=== PATIENT | female | born 1970 | race Caucasian/White ===

== ENCOUNTER 2020-01-29 18:42 | Outpatient (CLI) | payer OTHER, SELFPAY ==
--- NOTE | ~2020-01-29 | XR_ITS ---
EXAMINATION: XR knee LT 3V EXAM DATE: 01/29/2020 19:11 INDICATION: Left knee pain. Pops in and out of place. TECHNIQUE: Three projections of the left knee. There is no prior study for comparison. FINDINGS: Moderate-sized joint effusion. There is severe left patellar lateral subluxation, with pos sible discontinuity of the medial patellar retinaculum. There is moderate medial tibiofemoral and pat ellofemoral compartment primary osteoarthritis. There are no acute fractures or dislocations identifi ed. There is no subcutaneous gas. The soft tissue is unremarkable. There are no radiopaque foreig n bodies. IMPRESSION: 1. Severe left patellar lateral subluxation with possible medial retinacular disruption. 2. Moderate osteoarthritis. 3. Moderate joint effusion. Reviewed, dictated and finalized at location G. IMPRESSION: 1. Severe left patellar lateral subluxation with possible medial retinacular d isruption. 2. Moderate osteoarthritis. 3. Moderate joint effusion.
== END 2020-01-29 18:43 | disposition home or self-care (01) ==
PROVIDERS: PCP Physician Assistant; Visit Provider Physician Assistant
DX: M25.562 Pain in left knee (principal); S83.012A Lateral subluxation of left patella, initial encounter; M17.12 Unilateral primary osteoarthritis, left knee; M25.462 Effusion, left knee
CPT/HCPCS: 73562

== ENCOUNTER 2020-05-16 14:09 | Outpatient (CLI) | payer OTHER, SELFPAY ==
--- NOTE | ~2020-05-16 | XR_ITS ---
XR knee RT min 4V DATE: 05/16/2020 14:39 INDICATION: Right knee pain. No injury. TECHNIQUE: 4 views COMPARISON: None FINDINGS: There is tricompartment osteoarthritis, most severe at the medial compartment, with severe loss of joint space at this compartment. There is periarticular spurring at all 3 compartments. There is mild suprapatellar joint effusion. No fracture or dislocation, periosteal reaction or bone destruction is detected. No radiopaque intra- articular loose body is noted IMPRESSION: Tricompartment osteoarthritis, most severe at the medial compartment Mild knee joint effusion Reviewed, dictated and finalized at location A. MAID IMPRESSION: Tricompartment osteoarthritis, most severe at the medial compartmen t Mild knee joint effusion
== END 2020-05-16 14:10 | disposition home or self-care (01) ==
PROVIDERS: PCP Physician Assistant; Visit Provider Orthopaedic Surgery
DX: M17.11 Unilateral primary osteoarthritis, right knee (principal); M25.461 Effusion, right knee
CPT/HCPCS: 73564

== ENCOUNTER 2021-11-02 10:21 | Outpatient (CLI) | payer OTHER, SELFPAY | END 2021-11-02 10:22 | disposition home or self-care (01) | LOC: ANHAUDIO 10:23 | PROVIDERS: PCP Physician Assistant; Visit Provider Otolaryngology | DX: H90.3 Sensorineural hearing loss, bilateral (principal) | CPT/HCPCS: 92557; 92567 ==

== ENCOUNTER 2023-01-14 17:42 | Observation (INO) | payer OTHER, SELFPAY ==
[2023-01-14] VITALS (16 sets, daily range): BP systolic 160–206; BP diastolic 87–170; PULSE 64–87; RESP 16–33; TEMP 35.9; O2SAT 86–100
--- NOTE | ~2023-01-14 | XR_ITS ---
Portable chest x-ray Comparison: None Clinical History: Weakness Findings: Lungs are clear, without focal consolidation or pleural effusion. Cardiomediastinal silho uette is unremarkable. Bones and soft tissues are unremarkable. Impression: Normal chest. Reviewed, dictated and finalized at location M. Impression: Normal chest.
--- NOTE | ~2023-01-14 | CT_ITS ---
Non-contrast Head CT History: Headache Technique: Axial non-contrast imaging of the brain was performed. Dose reduction technique was used on this scan by utilizing automated exposure control and iterative reconstruction technique. The dose -length product (DLP) was 681.00 mGy-cm. Findings: There is no evidence of intracranial hemorrhage, mass lesion, or acute infarct. Brain par enchyma appears normal. The ventricles and subarachnoid spaces are normal in size. The calvarium ap pears normal. The visualized paranasal sinuses and mastoid air cells are clear. Impression: No significant abnormality seen. Reviewed, dictated and finalized at location . Impression: No significant abnormality seen.
--- NOTE | 2023-01-14 23:00 | ECG_ITS ---
Measurements Intervals [place] Rate: 60 P: 41 NE: 162 QRS: 80 QRSD: 88 T: 16 QT: 377 QTc: 378 Interpretive Statements SINUS RHYTHM WITHIN NORMAL LIMITS NO PREVIOUS ECG AVAILABLE FOR COMPARISON Electronically Signed On 01-15-2023 12:03:45 CDT by Shaun Reyes M.D.
[2023-01-14] MEDS: hydrALAZINE HCL 20 MG/ML VIAL 10 MG IV PUSH (23:21)
[2023-01-14] MEDS: PROCHLORPERAZINE EDISYLATE 10 MG/2 ML VIAL IV PUSH (23:21)
[2023-01-14 23:25] LABS: Basophils Percent Auto 0.2 % (0.2-1.2); Eosinophils Absolute Auto 0.1 K/mm3 (0-0.3); Eosinophils Percent Auto 0.6 % (0-4.4); Hematocrit 46.5 % (37.0-47.0); Hemoglobin 15.2 g/dL (12.0-15.0); Immature Granulocyte Absolute 0.02 K/mm3 (0.00-0.031); Immature Granulocyte Percent A 0.2 % (0-0.5); Lymphocytes Absolute Auto 2.89 K/mm3 (0.9-3.2); Lymphocytes Percent Auto 30.6 % (18.3-44.2); Mean Corpuscular HGB Conc 32.7 g/dl (32-36); Mean Corpuscular Hemoglobin 28.7 pg (26-34); Mean Corpuscular Volume 87.7 fl (80-100); Mean Platelet Volume 10.4 fl (7.4-10.4); Monocytes Absolute Auto 0.6 K/mm3 (0.1-0.6); Monocytes Percent Auto 6.3 % (2.6-8.5); Neutrophils Absolute Auto 5.9 K/mm3 (1.3-6.7); Neutrophils Percent Auto 62.1 % (45.5-73.1); Platelet Count Result 268 k/mm3 (150-375); White Blood Count 9.4 K/mm3 (4.5-10.0)
[2023-01-14 23:41] LABS: Alanine Aminotransferase 35 U/L (6-35); Albumin Level 4.5 g/dL (3.5-5.1); Alkaline Phosphatase 112 U/L (38-126); Anion Gap 9 mmol/L (8-16); Aspartate Amino Transferase 51 U/L (14-36); Bilirubin,Total 1.1 mg/dL (0.2-1.3); Blood Urea Nitrogen 12 mg/dL (7-17); Calcium 8.9 mg/dL (8.4-10.2); Carbon Dioxide 24 mmol/L (22-30); Chloride 104 mmol/L (98-107); Estimated CRCL calculation 99 ml/min; Estimated Glomerular Filt Rate > 60; Glucose 88 mg/dL (65-110); Magnesium 1.9 mg/dL (1.6-2.3); Potassium 4.8 mmol/L (3.4-5.0); Sodium 137 mmol/L (137-145)
[2023-01-14 23:46] LABS: Appearance Urine Cloudy (Clear); Bacteria Urine 1+ /hpf; Bilirubin Urine Negative (Negative); Blood Urine Negative (Negative); Color Urine Yellow (Yellow); Glucose Urine UA Negative (Negative); Ketones Urine 1+ mg/dL (Negative); Leukocyte Esterase Ur 1+ LEU/UL (Negative); Nitrate Urine Negative (Negative); Non Pathogenic Casts 0-2; Protein Urine Negative (Negative); RBC Urine 0-2 /hpf (0-2); Specific Grav Ur 1.021 (1.001-1.035); Squamous Epithelial Cell Urine Moderate /hpf (Few)
[2023-01-14 23:50] LABS: Add Urine Microscopic? YES
[2023-01-14 23:55] LABS: Troponin I < 0.012 ng/mL (0.000-0.034)
[2023-01-15] VITALS (45 sets, daily range): BP systolic 116–181; BP diastolic 55–97; PULSE 60–85; RESP 14–24; TEMP 35.7–36.7; O2SAT 95–100; BMI 44.9
[2023-01-15] LABS: Influenza A QL RT-PCR Negative (Negative); Influenza B QL RT-PCR Negative (Negative); SARS-CoV-2 RNA PCR Negative (Negative)
[2023-01-15] MEDS: ONDANSETRON INJ 4 MG/2 ML VIAL IV PUSH (01:13)
--- NOTE | 2023-01-15 01:19 | ED.GENADULT ---
HPI - General Adult General Chief complaint: Dizziness Stated complaint: visual problems, N&V, sweating, dizziness Time Seen by Provider: 01/14/23 22:46 History of Present Illness HPI narrative: Patient 53-year-old female who presents to emergency department with chief complaint of hypertension and headache dizziness and nausea. Patient reports she has history of rheumatoid arthritis and gets infusions patient reports that she has been having headache starts in the occipital region of her head that comes around her patient reports symptoms are improved by anything reports that she has had nausea but has had no vomiting. Patient denies focal neurological deficit denies chest pain. Related Data Home Medications Medication Instructions Recorded Confirmed naproxen 500 mg tablet 04/24/19 Allergies Allergy/AdvReac Type Severity Reaction Status Date / Time diphenhydramine AdvReac Anxiety Verified 01/14/23 22:25 [From [place]] Review of Systems Review of Systems: A 10 system review of systems was completed on the patient and is negative except for what is stated in the HPI. Nursing and ancillary documentation was reviewed. [facility] Past Medical History Medical History Postmenopausal Rheumatoid arthritis Exam Narrative: GENERAL: Well-appearing, well-nourished, and in no acute distress. HEAD: Normocephalic, atraumatic. EYES: PERRLA and EOMI. ENT: Nares clear, no rhinorrhea or epistaxis. Mucous membranes moist. NECK: Supple. CHEST: Clear to auscultation. No respiratory distress. HEART: Regular rate and rhythm. No murmur heard. Normal peripheral pulses. ABDOMEN: Soft, nontender, nondistended, normal active bowel sounds. EXTREMITIES: Normal range of motion. No edema. SKIN: Warm, dry, no rash. NEURO: No focal deficits. Alert and oriented x3. PSYCH: Normal mood and affect. Course Vital Signs Vital signs: Vital Signs Temperature 35.9 C L 01/14/23 18:11 Pulse Rate 76 01/14/23 18:11 Respiratory Rate 18 01/14/23 18:11 Blood Pressure 160/90 H 01/14/23 18:11 Pulse Oximetry 97 01/14/23 18:11 Oxygen Delivery Room Air 01/14/23 18:11 Temperature 36.7 C 01/15/23 00:33 Pulse Rate 69 01/15/23 00:46 Respiratory Rate 18 01/15/23 00:46 Blood Pressure 181/87 H 01/15/23 00:33 Pulse Oximetry 99 01/15/23 00:46 Oxygen Delivery Room Air 01/14/23 22:18 Medical Decision Making Vital Signs Vital Signs: Vital Signs Temperature 35.9 C L 01/14/23 18:11 Pulse Rate 76 01/14/23 18:11 Respiratory Rate 18 01/14/23 18:11 Blood Pressure 160/90 H 01/14/23 18:11 Pulse Oximetry 97 01/14/23 18:11 Oxygen Delivery Room Air 01/14/23 18:11 Temperature 36.7 C 01/15/23 00:33 Pulse Rate 69 01/15/23 00:46 Respiratory Rate 18 01/15/23 00:46 Blood Pressure 181/87 H 01/15/23 00:33 Pulse Oximetry 99 01/15/23 00:46 Oxygen Delivery Room Air 01/14/23 22:18 Lab Data 01/14/23 23:18 01/14/23 23:18 Labs: Lab Results 01/14/23 01/14/23 Range/Units 23:18 23:38 WBC 9.4 (4.5-10.0) K/mm3 RBC 5.30 (4.2-5.4) M/mm3 Hgb 15.2 H (12.0-15.0) g/dL Hct 46.5 (37.0-47.0) % MCV 87.7 (80-100) fl MCH 28.7 (26-34) pg MCHC 32.7 (32-36) g/dl RDW 13.0 (11.5-14.5) % Plt Count 268 (150-375) k/mm3 MPV 10.4 (7.4-10.4) fl Immature Gran % (Auto) 0.2 (0-0.5) % Neut % (Auto) 62.1 (45.5-73.1) % Lymph % (Auto) 30.6 (18.3-44.2) % Castro % (Auto) 6.3 (2.6-8.5) % Eos % (Auto) 0.6 (0-4.4) % Baso % (Auto) 0.2 (0.2-1.2) % Lymph # (Auto) 2.89 (0.9-3.2) K/mm3 Castro # (Auto) 0.6 (0.1-0.6) K/mm3 Eos # (Auto) 0.1 (0-0.3) K/mm3 Baso # (Auto) 0.0 (0.0-0.1) K/mm3 Abs Immat Gran (auto) 0.02 (0.00-0.031) K/mm3 Absolute Neuts (auto) 5.9 (1.3-6.7) K/mm3 Absolute Nucleated RBC 0.0 (0.0-0.012) K/mm3 Nucleat
[2023-01-15 02:51] LABS: Troponin I < 0.012 ng/mL (0.000-0.034)
--- NOTE | 2023-01-15 07:42 | PC.NURSE ---
Breakfast ordered for pt
--- NOTE | 2023-01-15 11:18 | ADMGEN ---
This patient, Jyothi Rosado, was admitted to [facility] Surg Room 310-01. Patient/family oriented to hospital policies and general routines including ID bracelet, bed and alarms, visiting hours, pain management, procedures, bathroom and other care routines, personal items, smoking policy, room service/diet, and visiting hours. Information on how to activate the Rapid Response Team has been discussed. Patient/Family are encouraged to report perceived risks to care and to ask questions if they do not understand what they are told or what they should do.
--- NOTE | 2023-01-15 14:56 | PM.IMHP ---
H&P: HPI History of Present Illness Date/Time: 01/15/23 14:56 <Minoo Meadows APRN - Last Filed: 01/15/23 16:47> Chief Complaint: Dizziness, VALLECILLO <Minoo Meadows APRN - Last Filed: 01/15/23 16:47> Narrative: 53-year-old female presents here with headache, dizziness, and nausea. Patient reports VALLECILLO has been present for the past 2-3 days. Initially superior and parietal, now occipital with radiation to neck and ears bilaterally. No medications taken at home for pain. Headache is accompanied by dizziness. Per patient, the dizziness is elicited with position changes and with specific eye movements. Relief with remaining sedentary, slow position changes. +Nausea w/o vomiting. Patient denies weakness, numbness, dysarthria, aphasia, or dysphagia. History of rheumatoid arthritis. Currently being treated with Rituxan infusions, celecoxib 100 mg PO, and leflunomide 10 mg PO. Patient next scheduled for infusion today. <Minoo Meadows APRN - Last Filed: 01/15/23 16:47> Review of Systems Review of Systems: All systems reviewed & are unremarkable except as noted in HPI and below <Minoo Meadows APRN - Last Filed: 01/15/23 16:47> ON LICENSE OF [facility] Past Medical History Medical History: Medical History (Updated 01/15/23 @ 16:12 by Minoo Meadows APRN) Postmenopausal Rheumatoid arthritis <Minoo Meadows APRN - Last Filed: 01/15/23 16:47> Surgical History Surgical History: Surgical History (Updated 01/15/23 @ 16:27 by Minoo Meadows APRN) No significant past surgical history <Minoo Meadows APRN - Last Filed: 01/15/23 16:47> Family History Family History: Family History (Updated 01/15/23 @ 16:43 by Minoo Meadows APRN) Mother Heart disease Lung cancer Sibling Hypertension <Minoo Meadows APRN - Last Filed: 01/15/23 16:47> Social History Social History: Social History Smoking packs per day: 0.5 Smoking cigarettes per day: 10.0 Years smoked: 37 Smoking pack-years: 18.50 Smoking status: Current every day smoker Tobacco type: cigarettes Alcohol intake: current Drinks per week: 1 Substance use: never Lack of Transportation: No Lack of Food: Never True Current Housing: I Have Housing Concerned About Future Housing: No Difficulty Paying Gas/Electric Bills: No Difficulty Paying for Meds: No Currently Unemployed: No Education: Decline to Answer Difficulty w/ Childcare or Family Care: No Spiritual care concerns: No <Minoo Meadows APRN - Last Filed: 01/15/23 16:47> Meds Home Medications and Allergies Home medications: Home Medications Medication Instructions Recorded Confirmed Type naproxen 500 mg tablet 04/24/19 History naproxen 500 mg tablet 500 mg PO BID 7 days #14 tabs 04/24/19 Rx calcium carbonate 600 mg-vitamin 800 tablet PO DAILY 01/15/23 01/15/23 History D3 10 mcg (400 unit) tablet (Calcium 600 + D(3)) celecoxib 100 mg capsule 100 mg PO DAILY 01/15/23 01/15/23 History leflunomide 10 mg tablet 10 mg PO DAILY 01/15/23 01/15/23 History <Minoo Meadows, MEDICAL LIBRARY ASSISTANT - Last Filed: 01/15/23 16:47> Allergies/Adverse reactions: Allergies Allergy/AdvReac Type Severity Reaction Status Date / Time diphenhydramine AdvReac Anxiety Verified 01/14/23 22:25 [From Benadryl] <Minoo Meadows, MEDICAL LIBRARY ASSISTANT - Last Filed: 01/15/23 16:47> Vital Signs Vital Signs - 24 hr 01/14/23 18:11 01/14/23 22:18 01/14/23 22:12 Temperature 96.7 F L Pulse Rate 76 66 68 Respiratory Rate 18 16 16 Blood Pressure 160/90 H 195/112 H Pulse Oximetry 97 100 100 Oxygen Delivery Room Air Room Air 01/14/23 22:13 01/14/23 22:15 01/14/23 22:17 Temperature Pulse Rate 76 65 76 Respiratory Rate 22 H 19 22 H Blood Pressure 189/107 H 195/112 H Pulse Oximetry 99 100 100 Oxygen Delivery 01/14/23 22:30 01/14/23 22:31 01/15/23 00:33 Temperature 98.1 F
[2023-01-15] MEDS: MECLIZINE HCL 25 MG TABLET PO (18:37)
[2023-01-15] MEDS: ENOXAPARIN 30 MG/0.3 ML SYRINGE SUB-Q (21:01)
[2023-01-16] VITALS (7 sets, daily range): BP systolic 123–132; BP diastolic 60–74; PULSE 49–67; RESP 16–21; TEMP 35.7–36; O2SAT 98–99
--- NOTE | 2023-01-16 06:00 | ECHO_ITS ---
Patient Info Name: Jyothi Rosado Age: 53 years : 1970 Gender: Female Ht: 60 in Wt: 229 lbs BSA: 2.16 m2 HR: 59 bpm BP: 150 / 71 mmHg Heart Rhythm: Sinus Rhythm Technical Quality: Fair Exam Date: 01/16/2023 9:12 AM Exam Location: [facility] Card Pulmonary Patient Status: Inpatient Admit Date: 01/15/2023 Staff Ordering Physician: Pablito Rivera MD Project Coordinator Rn: Kelly Alfred RDCS Attending Provider: Jessica Chávez MD Referring Physician: Nicole CHONG; Exam Type: CA echo doppler color flow Study Info Indications I10 - Essential (primary) hypertension Complete two-dimensional, color flow and Doppler transthoracic echocardiogram is performed. Summary 1. Complete two-dimensional, color flow and Doppler transthoracic echocardiogram is performed. 2. Left ventricular chamber dimension is normal. 3. Left ventricular systolic function is hyperdynamic, estimated at >70%. 4. There is mildly increased left ventricular wall thickness. 5. The left ventricular diastolic function is grade II diastolic dysfunction. 6. Left atrial chamber dimension is mildly enlarged. 7. There is mild tricuspid valve regurgitation. 8. There is mild pulmonic regurgitation. Left Ventricle Left ventricular chamber dimension is normal. Left ventricular systolic function is hyperdynamic, estimated at >70%. There is mildly increased left ventricular wall thickness. The left ventricular diastolic function is grade II diastolic dysfunction. Right Ventricle Right ventricular chamber dimension is normal. Right ventricular systolic function is normal. Left Atria Left atrial chamber dimension is mildly enlarged. Right Atria Right atrial chamber dimension is normal. Atrial Septum Intact interatrial septum visualized by color flow imaging. Aortic Valve The aortic valve is trileaflet. There is mild aortic valve sclerosis. There is no aortic valve stenosis. There is trace aortic valve regurgitation. Pulmonic Valve The pulmonic valve is normal. There is no pulmonic valve stenosis. There is mild pulmonic regurgitation. Mitral Valve The mitral valve has normal leaflets. There is no mitral valve stenosis. There is trace mitral valve regurgitation. Tricuspid Valve The tricuspid valve leaflets are normal. There is no significant tricuspid valve stenosis. There is mild tricuspid valve regurgitation. No pulmonary hypertension, estimated pulmonary arterial systolic pressure is 20 mmHg. Pericardium/Pleural The pericardium appears normal. There is no pericardial effusion. Inferior Vena Cava Normal inferior vena cava with >50% collapse upon inspiration consistent with normal right atrial pressure, 10 mmHg. Aorta The aortic root size at the sinus of Valsalva is normal. Left Ventricular Outflow Tract Name Value Normal LVOT 2D LVOT Diameter 2.0 cm LVOT Doppler LVOT Peak Gradient 5 mmHg LVOT Mean Gradient 2 mmHg LVOT VTI 21 cm LVOT VTI/AV VTI Ratio 0.8 LVOT Stroke Volume 64 ml LVOT CO 3.8 l/min LVOT
--- NOTE | 2023-01-16 08:23 | PM.IMPN ---
Progress Note: A&P Assessment and Plan (1) Headache: Code(s): R51.9 - Headache, unspecified Status: Acute Assessment and Plan: Tylenol 650 mg PO ordered PRN for pain - patient has not required or requested pain medication. VALLECILLO improving. (2) Dizziness: Code(s): R42 - Dizziness and giddiness Status: Acute Assessment and Plan: Meclizine 25 mg PO BID PRN ordered - one dose given on 01/15 PM. Patient reported improvement of symptoms, recurred but milder in nature. Will redose this AM. Encourage oral rehydration. PT/OT ordered for Emmie Maneuver - reasess for improvement post-intervention. (3) UTI (urinary tract infection): Code(s): N39.0 - Urinary tract infection, site not specified Status: Acute Assessment and Plan: Urine culture pending. Continue atb, Ceftriaxone 1 G Q24 hours. Upon discharge, exchange to PO. Cefdinir 300 mg PO BID x5 days. (4) Hypertension: Code(s): I10 - Essential (primary) hypertension Status: Acute Assessment and Plan: No previous history. Hydralazine 10 mg IV ordered PRN. Referral to PCP, Violet Suarez, for further management. BP 123/74 @0600 (01/16) CA Echo ordered. (5) Rheumatoid arthritis: Code(s): M06.9 - Rheumatoid arthritis, unspecified Status: Acute Assessment and Plan: Continue celecoxib 100 mg PO once daily. Continue leflunomide 10 mg PO once daily. No synovitis on exam. Plan DVT prophylaxis ordered - Lovenox 30 mg SQ Q12 hours. Heart Healthy Diet. Patient is full code. Time Spent With Patient Time with patient: less than 15 minutes Subjective Date/time seen: 01/16/23 08:23 Interval history: 53 y/o F with history of rheumatoid arthritis presented here with VALLECILLO, dizziness, nausea w/o vomiting. Found to have UTI and elevated blood pressures. Patient reports overall improvement of VALLECILLO and dizziness. Able to tolerate fluids/food with complete resolution of nausea. Patient endorses mild dizziness with ambulation to restroom at 0600. Reports meclizine dose that was administered yesterday (PM) improved symptoms, but returned later but milder in nature. Patient also endorses improvement in suprapubic discomfort, but change in urine output color. Reports it was orange in appearance when she used the restroom this AM. Review of Systems Review of Systems: All systems reviewed & are unremarkable except as noted in HPI and below Exam Const: General: comfortable and no acute distress Eyes: General: appearance normal, both eyes and all related structures Sclera: sclerae normal Pupils: Equal, round and reactive pupils present EOM: EOMs intact bilaterally Resp: Effort & Inspection: normal respiratory effort Auscultation: clear to auscultation bilaterally Cardio: Rate: regular rate Rhythm: regular rhythm GI: GI Palp: Yes Soft to palpation Auscultation: normal bowel sounds Other: Non-tender. Skin: General skin exam: normal color and no rashes or lesions noted Other: <1 cm of ecchymosis just superior and lateral to umbilicus. Neuro: Speech: normal speech Motor exam (neuro): 5/5 motor strength present throughout Sensory Exam: normal sensation Extrem: General: normal to inspection Psych: Mental Status: mental status grossly normal Affect: normal affect Other: Feeling hopeful, overall improved. Objective Data Vital Signs Vital Signs: Vital Signs - 24 hr 01/15/23 08:30 01/15/23 08:31 01/15/23 08:40 Temperature Pulse Rate 68 71 62 Respiratory Rate 21 H 21 H 14 Blood Pressure 140/97 H 116/55 L Pulse Oximetry 98 98 99 Oxygen Delivery 01/15/23 08:45 01/15/23 08:50 01/15/23 09:00 Temperature Pulse Rate 66 64 66 Respiratory Rate 19 20 22 H Blood Pressure 129/78 139/66 Pulse Oximetry 98 98 100 Oxygen Delivery 01/15/23 09:01 01/15/23 09:16 01/15/23 09:20 Temperature Pulse Rate 66 68 71 Respir
[2023-01-16] MEDS: LEFLUNOMIDE 10 MG TABLET PO (09:49)
[2023-01-16] MEDS: ENOXAPARIN 30 MG/0.3 ML SYRINGE SUB-Q (09:50)
[2023-01-16] MEDS: CELECOXIB 100 MG CAPSULE PO (09:50)
[2023-01-16] MEDS: SODIUM CHLORIDE 0.9% IV 500 ML IV CONT (14:48)
--- NOTE | 2023-01-16 16:47 | PM.DS ---
DS: Admitting Diagnosis Discharge Date 01/16/23 Admitting Diagnosis Dizziness DS: Discharge Diagnosis Discharge Diagnosis (1) Headache: Code(s): R51.9 - Headache, unspecified Status: Acute (2) Dizziness: Code(s): R42 - Dizziness and giddiness Status: Acute (3) Rheumatoid arthritis: Code(s): M06.9 - Rheumatoid arthritis, unspecified Status: Acute (4) Elevated blood pressure reading: Code(s): R03.0 - Elevated blood-pressure reading, without diagnosis of hypertension Status: Acute (5) Diastolic dysfunction: Code(s): I51.89 - Other ill-defined heart diseases Status: Acute DS: Summary Hospital Course Reason for hospitalization: 53yo female with RA here for dizziness, headache, nausea and vomiting.?Please see H&P for details. Hospital Course: Patient presents with emergency room with complaints of dizziness and headache. No focal neurologic symptoms noted on exam in the ED or after admission. EKG was normal. CBC was normal. CMP was normal except for an AST 51 and protein 9. Troponins negative x2. She did receive a fluid bolus for possible mild dehydration. Urinalysis was not completely normal but urine culture was mixed genital robbie. Chest x-ray was clear. CT the brain showed no acute findings. COVID and influenza were negative. She was on telemetry and it was noted that she had bradycardia to high 40's at times. She does snore but never been told she has apnea. Echocardiogram showed EF of 70% with grade 2 diastolic dysfunction and mild valvular disease. PT and OT worked with the patient. She was given instructions on Emmie maneuver. She has been up ambulating in room. She has some mild gait disturbance that she feels is related to her chronic knee pain from her RA. She was given meclizine p.r.n.. Dizziness did improve. She overall did well was able discharged on 01/16/2023. Status at Discharge Cognitive/behavioral status at discharge: Stable Time Spent with Patient Time attestation: Total time spent providing and/or coordinating discharge services: 34 minutes Time spent: Greater than 30 minutes Exam Narrative: AF ? 96.3 132/60 60 21 98% ra Gen - NARD Chest - CTA bilaterally, nml RR CV - RRR S1/S2 Abd - Soft, NT/ND, Positive BS Ext - No pedal edema Neuro - Alert and oriented.? Nonfocal exam.? Psych - Nml mood and affect Skin - Warm and dry Discharge Plan Discharge Attending physician on discharge: Pablito Perez Discharging Clinician: Pablito Perez Anticipated Discharge Date/Time: 01/16/23 16:56 Patient Disposition: Home, Self-Care Activity: as tolerated Diet: heart healthy Discharge Instructions: Please adhere to a DASH diet Check blood pressure 1 to 2 times a day. Record and bring into your doctor for review. Call your doctor if your blood pressure is greater than 180/110. Take precautions to avoid falls. Rise slowly from a lying or sitting position. Pause before standing or walking. Contact your doctor or call 911 and come to the Emergency Room if you have worsening dizziness, headache or other worrisome symptoms. Avoid NSAIDs (ibuprofen, naproxen, Aleve) since this can increase your blood pressure. Tylenol is safe to take. Follow-up with your primary care provider in 1-2 weeks. Please call for appointment. --Please speak with your provider about ordering a sleep study as we discussed (untreated sleep apnea can cause headaches) Please be aware that Meclizine can cross react with diphenhydramine (Benadryl) and you may develop anxiety from this. Stop meclizine if you are experiencing any concerning symptoms. Thank you for using [facility] for your health care needs. Patient Instructions: Antibiotic Form, How to Stop Smoking (GEN) Stand Alone Forms: General Discharge Information Follow-up/Referrals: Venus,TARA Harris [Primary Care Provider] - Call for
== END 2023-01-16 17:50 | disposition home or self-care (01) ==
LOC: ANHED 01-15 01:25 → ANH3MEDSUR 01-15 11:12
PROVIDERS: Admitting Provider Internal Medicine; Emergency Provider Emergency Medicine; PCP Physician Assistant; Visit Provider Internal Medicine
DX: R51.9 Headache, unspecified (principal); R42 Dizziness and giddiness; I11.9 Hypertensive heart disease without heart failure; I07.1 Rheumatic tricuspid insufficiency; I37.1 Nonrheumatic pulmonary valve insufficiency; M06.9 Rheumatoid arthritis, unspecified; R11.0 Nausea; Z20.822 Contact with and (suspected) exposure to COVID-19; R53.1 Weakness; N95.9 Unspecified menopausal and perimenopausal disorder; F17.210 Nicotine dependence, cigarettes, uncomplicated; F10.90 Alcohol use, unspecified, uncomplicated; Z79.1 Long term (current) use of non-steroidal anti-inflammatories (NSAID)
CPT/HCPCS: 36415; 70450; 71045; 80053; 81001; 83605; 83735; 84484; 85025; 87086; 87088; 87636; 93005; 93306; 96365; 96372; 96374; 96375; 96376; 97161; 97530; 99285; A9270; G0378; G0379; J0360; J0696; J0780; J1650; J2405; J7040

== ENCOUNTER 2023-08-21 18:36 | Emergency (ER) | payer OTHER, SELFPAY ==
--- NOTE | 2023-08-21 18:36 | ED.DENTAL ---
HPI - Dental/Oral General Chief complaint: Dental/Oral Stated complaint: Dental Pain Time Seen by Provider: 08/21/23 18:36 Source: patient Mode of arrival: ambulatory Limitations: no limitations History of Present Illness HPI Narrative: Patient is a 53-year-old female that presents with right lower dental pain that started last night. Patient has history of dental abscesses. Patient took her Celebrex in used viscous lidocaine. Patient reports bitter taste in mouth and bloody purulent drainage. Reports pain radiates to ear and jaw. Related Data Home Medications Medication Instructions Recorded Confirmed calcium carbonate 600 mg-vitamin 800 tablet PO DAILY 01/15/23 01/15/23 D3 10 mcg (400 unit) tablet (Calcium 600 + D(3)) celecoxib 100 mg capsule 100 mg PO DAILY 01/15/23 01/15/23 folic acid 1 mg tablet 08/21/23 methotrexate sodium 2.5 mg tablet mg 08/21/23 Allergies Allergy/AdvReac Type Severity Reaction Status Date / Time diphenhydramine AdvReac Anxiety Verified 08/21/23 18:49 [From [place]] Review of Systems Review of Systems: All systems reviewed & are unremarkable except as noted in HPI and below Constitutional: Constitutional: Denies body ache(s), Denies fever(s), Denies headache(s), Denies malaise and Denies weakness Eyes: Eyes: Denies loss of vision ENT: Denies otalgia, Reports facial pain (jaw), Denies headache(s), Denies nasal discharge, Denies sinus pain and Denies sore throat Cardiovascular: Cardiovascular: Denies chest pain, Denies irregular heart rhythm and Denies dyspnea Respiratory: Respiratory: Denies dyspnea Gastrointestinal: Gastrointestinal: Denies abdominal pain, Denies melena, Denies hematochezia, Denies diarrhea, Denies nausea and Denies vomiting Musculoskeletal: Musculoskeletal: Denies back pain, Denies myalgias and Denies arthralgias Integumentary/Breasts: Skin/Breast: Denies pruritus and Denies rash Neurologic: Denies headache(s), Denies loss of vision and Denies weakness Psychiatric: Psychiatric: Reports no additional psychiatric complaints PMFSH Past Medical History Medical History Postmenopausal Rheumatoid arthritis Surgical History Surgical History No significant past surgical history Family History Family History Mother Heart disease Lung cancer Sibling Hypertension Social History Social History Smoking packs per day: 0.5 Smoking cigarettes per day: 10.0 Years smoked: 37 Smoking pack-years: 18.50 Smoking status: Current every day smoker Tobacco type: cigarettes Alcohol intake: current Drinks per week: 1 Substance use: never Lack of Transportation: No Lack of Food: Never True Current Housing: I Have Housing Concerned About Future Housing: No Difficulty Paying Gas/Electric Bills: No Difficulty Paying for Meds: No Currently Unemployed: No Education: Decline to Answer Difficulty w/ Childcare or Family Care: No Spiritual care concerns: No Comments At time of signature, agree with nursing past medical, surgical, social and family history. There is no relevant family history pertinent to the presenting complaint. Exam Const: General: cooperative, healthy appearing, comfortable, no acute distress and well nourished Nutritional Appearance: well nourished Orientation/consciousness: patient oriented x3 Limitations: no limitations HENMT: Head: normal to inspection, normocephalic and atraumatic Ears: hearing grossly normal bilaterally, external ears normal, TM's normal bilaterally and mastoids normal bilaterally Face/Nose/Sinus: Normal external nose present, normal facial exam and face symmetric Face and sinus: normal facial exam and face symmetric Mouth: Yes Normal oral and palatal mucosa
[2023-08-21 18:48] VITALS: BP 153/83; PULSE 100; RESP 16; TEMP 36.3; O2SAT 100
== END 2023-08-21 19:10 | disposition home or self-care (01) ==
PROVIDERS: Emergency Provider Nurse Practitioner Family; PCP Physician Assistant
DX: K04.7 Periapical abscess without sinus (principal); F17.210 Nicotine dependence, cigarettes, uncomplicated; M06.9 Rheumatoid arthritis, unspecified
CPT/HCPCS: 99213; G0463

== ENCOUNTER 2024-06-23 15:07 | Emergency (ER) | payer OTHER, SELFPAY ==
--- NOTE | ~2024-06-23 | XR_ITS ---
EXAMINATION: XR humerus RT DATE: 06/23/2024 16:26 INDICATION: Right upper arm injury TECHNIQUE: AP and lateral views of the right humerus were obtained. COMPARISON: None. FINDINGS: Bone alignment is normal. No fractures. Mild osteoarthritis at the right elbow and acromioclavicular joints. Soft tissues are unremarkable. Visualized portion of the right lung are clear with no pleural effusion. IMPRESSION: 1. Mild right acromioclavicular and elbow osteoarthritis. No acute osseous abnormality. Reviewed, dictated and finalized at location A. AD WINDER AUTOMATIC IMPRESSION: 1. Mild right acromioclavicular and elbow osteoarthritis. No acute osseous abno rmality.
--- NOTE | ~2024-06-23 | XR_ITS ---
EXAMINATION: XR forearm LT 2V DATE: 06/23/2024 16:26 INDICATION: Left forearm injury TECHNIQUE: AP an lateral views of the left forearm were obtained. 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 Alignment is otherwise normal. No fracture. 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 Soft tissues are u nremarkable. No elbow joint effusion. IMPRESSION: 1. No acute osseous abnormality. 2. 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 Reviewed, dictated and finalized at location A. CIPAL RESEARCH ECONOMIST
--- OUTSIDE RECORDS SUMMARY | 2024-06-23 15:12 | XMS_ITS | Data Portability ---
Author Organization [place] [facility], Main Office Address [address] [place] [address] Care Team Providers Care Pensions Retirement Plan Specialist Name Role Phone SAMIR THOMPSON Primary Care Provider SAMIR THOMPSON Referring Provider Assessment Encounter Date Assessment Date Assessment LastModified by Organization Details LastModified Time 03/31/2024 03/31/2024 The patient has severe bkyc-fh-[id number] primary osteoarthritis of both knees worst in the medial and patellofemoral compartments. She has varus deformities and bilateral patellar lateral subluxation and hypertrophic changes mostly around the patella bilaterally. We talked about treatment options today gel shots worked better for her than anything else she got excellent relief earlier this year she would like to repeat those. We will get her set up for gel shots I will see her back when those are ready. She will continue with working on weight loss and taking Celebrex daily. She voiced understanding and agreed with the above plan she will call for any further problems difficulties or questions. Not available 03/31/2024 15:28:46 04/13/2024 04/13/2024 The patient has severe primary osteoarthritis both knee joints. At her request under sterile conditions I injected both knee joints in the office today with Euflexxa injection number 1 from the specialty pharmacy, she tolerated the procedures well. I will see her back next week for the 2nd injection both knees she voiced understanding agrees above plan she will call for any further problems difficulties or questions. Not available 04/13/2024 11:56:22 04/20/2024 04/20/2024 The patient has severe primary osteoarthritis both knee joints. Under sterile conditions I injected both knee joints in the office today with Euflexxa injection number 2 from the specialty pharmacy. I will see her back next week for the 3rd injection both knees she voiced understanding agrees above plan she will call for any further problems difficulties or questions. Not available 04/20/2024 11:38:46 04/27/2024 04/27/2024 The patient has severe primary osteoarthritis both knees as described. Under sterile conditions I injected both knee joints in the office today with Euflexxa injection number 3 from the specialty pharmacy. The patient tolerated the procedures well. I will see her back as needed we can do this again in 6 months versus cortisone in between she voiced understanding and agreed with the above plan she will call for any further problems difficulties or questions. Not available 04/27/2024 12:00:18 06/18/2024 06/18/2024 The patient has a contusion to her bilateral upper extremities and bilateral knees most significant in the right upper extremity anteriorly as well as the left knee anteriorly as described. She has multiple bruising areas because of her fall at the grocery store. We talked about treatment options today she needs to work on gentle range of motion and give this time she can use ice for swelling if necessary. She does take Celebrex we will give her some prednisone pills to take for a few days as well to help with the inflammation. Her x-rays are unremarkable we talked about x-raying her forearm but her exam is totally benign as far as function and discomfort other than tenderness over the bruised areas. The knee x-rays did not show any acute bony or joint abnormalities. She just had cortisone injections about 6 weeks ago on both knees she can come back in 6 weeks if necessary for further injections or we could try another round of gel shots in the future which would be about 5 months from now. If something worsens or changes she is instructed to call she voiced understanding and agree with the above plan. Not available 06/18/2024 14:28:41 Plan of Treatment Reminders Order Date Submit Date Provider Last Modified By Organization Details Last Modified Time Details Appointments None recorded. Lab None recorded. Referral None recorded. Procedures injection/a spiration joint/bursa (PROC) - in office procedure, administere d by provider 2023 024 [email or web address] In-Office Order, Internal Use Only DO Not Attach Compendium DO Not Attach Compendium, Do Not Delete/merge, [id number] 11:43:27 injection/a spiration joint/bursa (PROC) - in office procedure, administere d by provider 2023 024 [email or web address] In-Office Order, Internal Use Only DO Not Attach Compendium DO Not Attach Compendium, Do Not Delete/merge, [id number] 4 11:29:05 knee aspiration/ injection (PROC) 2023 024 [email or web address] In-Office Order, Internal Use Only DO Not Attach Compendium DO Not Attach Compendium, Do Not Delete/merge, 4 11:47:22 Surgeries None recorded. Imaging XR, knee 2023 024 [email or web address] [facility] [place], [address], [place], [address], 4 15:30:56 XR, knee 2024 025 [email or web address] [facility] [place], [address], [place], [address], 5 14:42:40 Medication Orders prednisone 10 mg tablets in a dose pack 2024 025 [email or web address] [id number], [address], [place], [place], [id number], 5 14:42:40 Patient TargetsNo targets recorded. Patient InstructionsNo instructions recorded. Reason for Referral None Reported. Results Created Date Observation Date Name Description Value Unit Range Abnormal Flag Note LastModifiedBy Organization Detail LastModifiedTime 03/31/20 24 XR, knee No observ ation record ed. [email or web address] [facility] [place] [address], [place], [address], 03/31/2024 15:30:15 06/18/19 25 XR, knee No observ ation record ed. [email or web address] [facility] [place] [address], [place], [address], 06/18/2024 14:29:43 Result Notes None recorded. Problems Name Problem SNOMED Code Status Onset Date Resolution Date Notes Provider Name and Address Organization Details Recorded Time Bilateral arthritis of knees 1664370670336 108 Active 2020 Not Available [facility] 3 02:34:16 Bilateral osteoarthr itis of knees 4567806577915 07 Active 2022 Not Available [facility] 3 02:34:16 Morbid obesity 205161363 Active 2020 Not Available [facility] 3 02:34:16 Osteoarthr itis of knee 596699196 Active 2020 Not Available [facility] 3 02:34:16 Osteoarthr itis 711347288 Active 2021 Not Available [facility] 3 02:34:16 Obesity 342604807 Active 2021 Not Available [facility] 3 02:34:16 Pain of right knee joint 5205889067408 00 Active 2021 Not Available [facility] 3 02:34:16 Pain of bilateral knee joints 6331303395124 04 Active 2023 KARISSA GalindoA null, [place] [facility] 4 13:29:49 Pain of left knee joint 4192893089401 07 Active 2024 KARISSA GalindoA null, [place] [facility] 5 13:19:35 Contusion of right forearm 4253129191998 9102 Active 2024 TARA Riley [address], [address], [place], [address] , [facility] 5 14:30:30 Contusion of knee 35558898 Active 2024 TARA Riley [address], [address], [place], [address] , [place] [facility] 14:30:39 Problem Notes None recorded. Procedures Surgical History None recorded. Imaging Results Imaging Date Name Status LastModified by Organiz ation Details LastModified Time 03/31/2024 XR, knee completed [email or web address] [facility] [place] [address], [place], [address], 03/31/2024 15:30:15 06/18/2024 XR, knee completed [email or web address] [facility] [place] [address], [place], [address], 06/18/2024 14:29:43 Procedure Notes None recorded. Medical Equipment None Reported. Allergies Allergen ID Allergen Name Allergen Category Reaction Reaction Severity Criticality Documentation Date Start Date Code Code System Note Provider Name and Address Organization Details Recorded Time 61465 Benadryl medicatio n anaphylax is Not available Not available 03/31/2024 7 RxNorm Delmi Jauregui, GUNNAR nieto, [facility] 14:42:16 Medications Name Sig Start Date Stop Date Status Note LastModified by Organization Details LastModified Time cyclobenzap rine 10 mg tablet 02/07 completed Not Available Not Available Not Available clindamycin HCl 300 mg capsule TAKE 1 CAPSULE BY MOUTH EVERY 8 HOURS FOR 14 DAYS 03/31 completed Not Available Not Available Not Available cetirizine 10 mg tablet TAKE 1 TABLET BY MOUTH EVERY DAY IN THE MORNING FOR 14 DAYS 12/03 completed Not Available Not Available Not Available azithromyci n 250 mg tablet 12/03 completed Not Available Not Available Not Available prednisone 20 mg tablet 02/07 completed Not Available Not Available Not Available leflunomide 10 mg tablet 03/31 completed Not Available Not Available Not Available prednisone 10 mg tablets in a dose pack Take 1 tab by mouth, 3 times a day for 3 daysTake 1 tab by mouth 2 times a day for 2 daysTake 1 tab by mouth once a day for 1 day 2024 active Not Available Not Available Not Avai lable meloxicam 7.5 mg tablet active Not Available Not Available Not Available amoxicillin 875 mg tablet 02/07 completed Not Available Not Available Not Available methotrexat e sodium 2.5 mg tablet active Not Available Not Available Not Available Kenalog 10 mg/mL suspension for injection In office injection administe red by the provider 12/03 completed [facility]: 0003- 0494- 20 Not Available Not Available Not Available meclizine 25 mg tablet TAKE 1 TABLET BY MOUTH TWICE DAILY NEEDED FOR DIZZINESS active Not Available Not Available No t Available tobramycin 0.3 % eye drops 03/31 completed Not Available Not Available Not Available lisinopril 10 mg tablet TAKE 1 TABLET BY MOUTH EVERY DAY DIRECTED 03/31 completed Not Available Not Available Not Available lidocaine HCl 2 % mucosal solution APPLY TO AFFECTED AREA OF MOUTH 3 TIMES A DAY NEEDED FOR PAIN FOR 7 DAYS' 03/31 completed Not Available Not Available Not Available folic acid 1 mg tablet active Not Available Not Available Not Available ergocalcife rol (vitamin D2) 1,250 mcg (50,000 unit) capsule TAKE 1 CAPSULE BY MOUTH EVERY WEEK DIRECTED 03/31 completed Not Available Not Available Not Available methylpredn isolone 4 mg tablets in a dose pack active Not Available Not Available Not Available celecoxib 100 mg capsule active Not Available Not Available Not Available cefdinir 300 mg capsule TAKE 1 CAPSULE BY MOUTH EVERY 12 HOURS WITH MEALS FOR 7 DAYS 12/03 completed Not Available Not Available Not Available fluticasone propionate 50 mcg/actuati on nasal spray,suspe nsion 02/07 completed Not Available Not Available Not Available phentermine 37.5 mg capsule TAKE 1 CAPSULE BY MOUTH EVERY DAY IN THE MORNING 12/03 completed Not Available Not Available Not Available loratadine 10 mg tablet TAKE 1 TABLET BY MOUTH EVERY DAY IN THE MORNING 12/03 completed Not Available Not Available Not Available naproxen 500 mg tablet TK 1 T PO BID UTD 12/03 completed Not Available Not Available Not Available amoxicillin 875 mg-potassiu m clavulanate 125 mg tablet TAKE 1 TABLET BY MOUTH EVERY 12 HOURS WITH MEALS FOR 7 DAYS 12/03 completed Not Available Not Available Not Available neomycin-po lymyxin-hyd rocort 3.5 mg-10,000 unit/mL-1 % ear drops,susp SHAKE LIQUID AND INSTILL 4 DROPS TO AFFECTED EAR THREE TIMES DAILY FOR 10 DAYS 12/03 completed Not Available Not Available Not Available ORTHOVISC 30 mg/2 mL intra-artic ular syringe Inject 2 mL every week by intra-art icular route. 03/31 completed Not Available Not Available Not Available nitrofurant oin monohydrate /macrocryst als 100 mg capsule TAKE 1 CAPSULE BY MOUTH EVERY 12 HOURS FOR 5 DAYS DIRECTED 03/31 completed Not Available Not Available Not Available calcium 500 mg (as carbonate)- vit D3 10 mcg (400 unit) chewable tablet TAKE 2 TABLETS BY MOUTH DAILY 12/03 completed Not Available Not Available Not Available Euflexxa 10 mg/mL (mw 2.4-3.6 million) intra-artic ular syringe Inject 2 mL by intra-art icular route for 35 days, for bilateral knee osteoarth ritis. active Not Available Not Available No t Available Remicade 2020 active Not Available Not Available Not Avai lable lidocaine (PF) 10 mg/mL (1 %) injection solution In office injection administe red by the provider 07/26 completed [facility]: 0409- 4276- 17 Not Available Not Available Not Available calcium 600 mg (as carbonate)- vitamin D3 10 mcg (400 unit) tablet TAKE 2 TABLETS BY MOUTH DAILY-PRN active Not Available Not Available No t Available ropivacaine (PF) 5 mg/mL (0.5 %) injection solution Take 40 mg by injection route. 12/03 completed Not Available Not Available Not Available Vitals Date Recorded Body height Body mass index (BMI) Body weight Provider Name and Address Organization Details Last Updated DateTime 03/31/2024 152.4 cm 44.9 kg/m2 027497.25 g Delmi Jauregui CNA [employer] 03/31/2024 14:41:16 Date Recorded Body height Body mass index (BMI) Body weight Provider Name and Address Organization Details Last Updated DateTime 04/13/2024 152.4 cm 44.9 kg/m2 778161.25 g Delmi Jauregui CNA [employer] 04/13/2024 11:42:47 Date Recorded Body height Body mass index (BMI) Body weight Provider Name and Address Organization Details Last Updated DateTime 04/20/2024 152.4 cm 44.9 kg/m2 912181.25 g [facility] [place] [employer] [facility] 04/20/2024 11:28:10 Date Recorded Body height Body mass index (BMI) Body weight Provider Name and Address Organization Details Last Updated DateTime 04/27/2024 152.4 cm 44.9 kg/m2 291559.25 lynnette Bui [facility] [employer] [facility] 04/27/2024 11:46:30 Date Recorded Body height Body mass index (BMI) Body weight Provider Name and Address Organization Details Last Updated DateTime 06/18/2024 152.4 cm 44.9 kg/m2 954635.25 lynnette Jauregui CNA [facility] [employer] [facility] 06/18/2024 13:19:05 Social History Question Answer Notes LastModified by Organizat ion Details LastModified Time Tobacco Smoking Status Current Every Day Smoker Not Available [facility] 07/18/2022 02:25:35 What Is Your Level Of Alcohol Consumption? Occasional [id number] Information not available 07/18/2022 How Much Tobacco Do You Smoke? 0.5 PPD Information not available 12/03/2022 How Many Years Have You Smoked Tobacco? 30 Information not available 12/03/2022 Sex: Unknown Functional Status None recorded. Mental Status None recorded. Family History Relationship Description Onset Age of this Age Resolved Age Notes LastModified by Organization Details LastModified Time Mother Malignant tumor of lung [email or web address] Not available 2023 14:44:28 Father Malignant tumor of pancreas [email or web address] Not available 2023 14:44:54 Medical History Condition Response ARTHRITIS Y Gynecological HistoryNo gynecological history recorded. Obstetrics History GPAL:G 0 P 0 0 0 0 Past Encounters Encounter ID Performer Location Encounter Start Date Encounter Closed Date Diagnosis/Indication Diagnosis SNOMED-CT Code Diagnosis ICD10 Code Diagnosis Note [id number] [facility] [place] [address] [place] [address] 07/28/2020 00:00:00 07/28/2020 11:23:47 [id number] [facility] [address] [place] [address] 10/04/2020 00:00:00 10/04/2020 10:59:16 [id number] [facility] [place] [address] [place] [address] 10/11/2020 00:00:00 10/11/2020 10:29:11 [id number] [facility] [place] [address] [place] [address] 10/18/2020 00:00:00 10/18/2020 09:25:02 [id number] [facility] [place] [address] [place] [address] 07/26/2021 00:00:00 07/26/2021 09:49:15 [id number] [facility] [place] [address] [place] [address] 09/04/2021 00:00:00 09/04/2021 12:01:16 [id number] [facility] [place] [address] [place] [address] 09/11/2021 00:00:00 09/11/2021 11:42:32 [id number] [facility] [place] [address] [place] [address] 09/18/2021 00:00:00 09/18/2021 11:19:30 [id number] [facility] [place] [address] [place] [address] 11/24/2021 00:00:00 11/24/2021 14:09:34 [id number] [facility] [place] [address] [place] [address] 03/02/2022 00:00:00 03/02/2022 14:28:24 [id number] [facility] [place] [address] [place] [address] 05/03/2022 00:00:00 05/03/2022 14:19:34 [id number] [facility] [place] [address] [place] [address] 05/10/2022 00:00:00 05/10/2022 15:10:17 [id number] [facility] [place] [address] [place] [address] 05/29/2022 00:00:00 05/29/2022 15:21:30 [id number] TARA Riley [facility] [place] [address] [place] [address] 12/03/2022 11:53:10 12/03/2022 12:18:47 Bilateral osteoarthritis of knees 3762685344 66973 M17.0 [id number] TARA Riley [facility] [place] [address] [place] [address] 12/10/2022 11:36:52 12/10/2022 12:17:30 Bilateral osteoarthritis of knees 9992209554 91706 M17.0 [id number] TARA Riley [facility] [place] [address] [place] [address] 12/17/2022 11:45:12 12/17/2022 12:06:09 Bilateral osteoarthritis of knees 4748798704 57262 M17.0 [id number] TARA Riley [facility] [place] [address] [place] [address] 06/20/2023 13:25:59 06/20/2023 13:51:32 Bilateral osteoarthritis of knees 6575567429 98013 M17.0 Pain of bi lateral knee joints 3187485181 47128 M25.561 M25.909 [id number] TARA Riley [facility] [place] [address] [place] [address] 07/05/2023 12:21:39 07/05/2023 14:15:27 Bilateral osteoarthritis of knees 4786950340 07195 M17.0 Pain of bi lateral knee joints 9331220306 65773 M25.561 M25.067 [id number] TARA Riley [facility] [place] [address] [place] [address] 07/12/2023 11:59:19 07/12/2023 12:44:15 Bilateral osteoarthritis of knees 6128877733 27109 M17.0 Pain of bi lateral knee joints 3946113451 17974 M25.561 M25.822 [id number] TARA Riley [facility] [place] [address] [place] [address] 03/31/2024 14:21:14 03/31/2024 15:19:56 Bilateral osteoarthritis of knees 9903660747 10978 M17.0 Pain of bi lateral knee joints 5479831930 13702 M25.561 M25.993 [id number] TARA Riley [facility] [place] [address] [place] [address] 04/13/2024 11:38:04 04/13/2024 12:13:36 Bilateral osteoarthritis of knees 8204453493 47675 M17.0 Pain of bi lateral knee joints 0705697957 76543 M25.561 M25.708 [id number] TARA Riley [facility] [place] [address] [place] [address] 04/20/2024 11:26:13 04/20/2024 11:49:44 Bilateral osteoarthritis of knees 2558671870 98184 M17.0 Pain of bi lateral knee joints 2323949378 65862 M25.561 M25.217 [id number] TARA Riley [facility] [place] [address] [place] [address] 04/27/2024 11:43:29 04/27/2024 12:34:34 Bilateral osteoarthritis of knees 4058374387 31544 M17.0 Pain of bi lateral knee joints 9977975712 98182 M25.561 M25.255 [id number] TARA Riley [facility] [place] [address] [place] [address] 06/18/2024 13:15:15 06/18/2024 14:18:08 Bilateral osteoarthritis of knees 0449309770 76161 M17.0 Pain of le ft knee joint 4188023483 34414 M25.562 Contusion of knee 580325 06 S80.02XA Contusion of right forearm 1310423571 9440862 S50.11XA Health Concerns Section Related Observation LastModified by Organization Detai ls LastModified Time None Recorded Concern Status LastModified by Organization Details LastModified Time None Recorded Advance Directives Directive None Recorded Payers Encounter Date Sequence Insurance Name Policy Number Policy Mason Covered Member ID Mason Member ID Guarantor Name 03/31/2024 1 [facility] (MEDICAID HMO) [id number] Jyothi A Ashlee [id number] Jyothi A Ashlee 04/13/2024 1 [facility] [place] ([place]ICAID H[place]) [id number] 0003 Jyothi A Ashlee [id number] Jyothi A Ashlee 04/20/2024 1 [facility] [place] [id number] Jyothi A Ashlee [id number] Jyothi A Ashlee 04/27/2024 1 [facility] (MEDICAID HMO) [id number] 0003 Jyothi A Ashlee [id number] Jyothi A Ashlee 06/18/2024 1 [facility] (MEDICAID HMO) [id number] 0003 Jyothi A Ashlee [id number] Jyothi A Ashlee Notes Date Note Type Note Provider Name and Address Organization Details Recorded Time 03/31/2024 text/html Patient returns with bilateral knee pain. She has known severe primary osteoarthritis of both knee joints. Her last gel shot series was in June of this year she states she got excellent relief and was very pleased with the results. She has tried cortisone previously this did not give her the same sort of relief as the gel. She does take Celebrex daily and it has been through therapy. Also she is not currently a candidate for total knee arthroplasty due to a BMI of 44.9. We have talked about weight loss previously and again today she is going to talk to her primary care physician about possible medication she can use to help with the weight loss process. She would have to be below 40 to have total knee arthroplasty. It looks like she would need to lose probably 40-50 lb to qualify. She denies any new trauma or injury to either knee we will get new x-rays today for an updated look at her osteoarthritis as it has been more than a year since her last x-rays. She has aching pain mostly medially she has trouble with squatting kneeling going up and down stairs. She can not stand or walk for long periods. We talked about proper exercise today as well for strengthening of the knees she can not tolerate walking but we did talk about exercise bike swimming or [employer] machine is a low impact type exercise. Also talked about diet changes. She comes in today to talk about getting set up for gel shots as we will need to get these approved through insurance 1st. She states her pain is about a 6 on a scale of 1-10 but much worse if she has a busy day. The patient has significant pain reproduction with almost any activity is very limited even walking to the mailbox or trying to go to the grocery store causes her significant pain. A new past medical history sheet was reviewed and signed on the intake sheet of today's date drug allergies current medications family social history previous surgical history 10 point review of systems was reviewed and discussed in detail today with the patient. TARA Riley [address], [place], [address], [employer] 03/31/2024 15:30:40 04/13/2024 text/html patient returns for Euflexxa injection number 1 both knees from the specialty pharmacy. She has severe primary osteoarthritis of both knee joints the gel shots worked better than cortisone which gave her not nearly the relief that she gets from the gel. Unfortunately her BMI is too high for total knee arthroplasty we have talked about weight loss previously and she is talking to her primary care physician about weight loss medication. She denies any new problems today she would like to proceed with gel shots both knees. TARA Riley [address], [address], [place], [address], [employer] 04/13/2024 11:56:33 04/20/2024 text/html The patient retu rns for Euflexxa injection number 2 both knees from the specialty pharmacy. She has severe primary osteoarthritis in both knee joints is already starting to get a little bit of relief from the 1st round of injections. What she really needs his total knee arthroplasty however her BMI is too high she is working on weight loss discussing this with her primary care physician in the meantime she is ready for the 2nd injection both knees. Denies any problems with the 1st round. TARA Riley [address], [address], [place], [address], [employer] [facility] 04/20/2024 11:39:42 04/27/2024 text/html The patient retu rns for Euflexxa injection number 3 both knees from the specialty pharmacy. The patient has severe primary osteoarthritis with mkqd-qz-owyv changes in the medial compartments of both knees. Her BMI is too high for total knee arthroplasty she is working on weight loss with the primary care physician in the meantime she is doing better with 1st 2 rounds of injections getting some good relief already. TARA Riley [address], [address], [place], [address], [employer] 04/27/2024 12:00:35 06/18/2024 text/html Patient returns after new injury yesterday. She was at the grocery store when she was trying to get 2 gal of milk. She picked up 1 leaned forward to get the other 1 when she lost her balance fell forward into the refrigerated milk case. She had to have help getting out and noted that she had pain in both forearms where she landed on them also contused her left knee. She actually has bruises on both knees and both forearms more on the left knee more on the right anterior forearm above and below the elbow anteriorly. She was able to ambulate she states last night she was pretty miserable with her injuries. She states her back is sore to from the strain of falling. She denies any significant problems with her back most of her complaints related to her left knee and right forearm. She states that her right forearm is quite bruised she showed me very large bruises about the size in diameter of oranges she has a smaller bruise on her left anterior knee. She denies any loss of motion no neurovascular deficits no skin abrasions or lacerations no loss of function motion or strength. She states her aching pain is about a 9 on a scale of 1-10 she is able to get around pretty well. She is full weight-bearing on both legs she does have a long history of severe primary osteoarthritis both knees with [id number] changes in the medial compartments and she has had multiple cortisone and gel shot injections she is also currently on Celebrex daily. She has a history of rheumatoid arthritis is on methotrexate and Remicade as well. She comes in today for evaluation of her left knee which is bothering her the most. TARA Rilye [address] [facility], [facility] [address], [place], [address], [place] [facility] [employer] 06/18/2024 14:31:10 OBGyn Episode No OBEpisode recorded.
--- OUTSIDE RECORDS SUMMARY | 2024-06-23 15:12 | XMS_ITS | Referral Summary ---
Author Organization [place] [id number] [facility] Address [address] [place] [address] Care Team Providers Care Technology Education Teacher Name Role Phone Violet Donovan Primary Care Provider [phone] Encounters Date Type Department Care Team Description 06/04/2024 2:07 PM PATIENT TRANSPORTATION DRIVER - 06/04/2024 11:59 PM PATIENT TRANSPORTATION DRIVER Hospital Encounter [address] [phone] Rheumatoid arthritis involving multiple sites with positive rheumatoid factor (CMS/HCC) (HCC); High risk medication use Discharge Disposition: Discharge to home or self care 06/04/2024 1:55 PM PATIENT TRANSPORTATION DRIVER Lab [facility] Endocrinology Metabolism and Lipid [address] [place] [address] [place] [address] Rheumatoid arthritis involving multiple sites with positive rheumatoid factor (CMS/HCC) (HCC); High risk medication use 06/04/2024 1:00 PM PATIENT TRANSPORTATION DRIVER Office Visit [facility] Rheumatology [address] [place] [address] [place] [address] Ryanne Limon NP Rheumatoid arthritis involving multiple sites with positive rheumatoid factor (CMS/HCC) (HCC) (Primary Dx); High risk medication use 06/02/2024 1:30 PM PATIENT TRANSPORTATION DRIVER Infusion [facility] [address] [place] [phone] Rheumatoid arthritis involving multiple sites with positive rheumatoid factor (CMS/HCC) (HCC) (Primary Dx) 04/21/2024 1:30 PM PATIENT TRANSPORTATION DRIVER Infusion [facility] [address] [place] [phone] Rheumatoid arthritis involving multiple sites with positive rheumatoid factor ([facility] ([facility]) (Primary Dx) from Last 3 Months Allergies Active Allergy Reactions Criticality Noted Date Comments Diphenhydramine Anaphylaxis High 06/04/2024 Medications infliximab (REMICADE IV) Remicade Active calcium carbonate-vitam in D3 (CALTRATE 600 + D) 1500 mg (600 mg elemental) -400 units per tablet TAKE 2 TABLETS BY MOUTH DAILY 60 tablet 2 2 Active Additional Information Patient taking differently:2 tablet oral Daily,Needs refill, Reported on 02/20/2024 phentermine 37.5 mg capsule phentermine 37.5 mg capsule TAKE 1 CAPSULE BY MOUTH EVERY DAY IN THE MORNING Active loratadine (CLARITIN) 10 mg tablet Take 1 tablet every day by oral route in the morning for 30 days. 3 Active meclizine (ANTIVERT) 25 mg tablet TAKE 1 TABLET BY MOUTH TWICE DAILY NEEDED FOR DIZZINESS Active tobramycin (TOBREX) 0.3 % ophthalmic solution 4 Active methotrexate 2.5 mg tabletIndicatio ns:Rheumatoid Arthritis Take 4 tablets (10 mg total) by mouth once a week 16 tablet 3 4 Active folic acid (FOLVITE) 1 mg tablet Take 1 tablet (1 mg total) by mouth daily 90 tablet 2 4 Active celecoxib (CeleBREX) 100 mg capsuleIndicati ons:Pain Take 1 capsule (100 mg total) by mouth daily 60 capsule 1 4 Active Active Problems Problem Noted Date Diagnosed Date Rheumatoid arthritis involvi ng multiple sites with positive rheumatoid factor ([facility]) 05/09/2020 Immunizations Name Administration Dates Next Due PPD TEST 08/29/2007 Social History Tobacco Use Types Packs/Day Years Used Date Smoking Tobacco: Every Day Smokeless Tobacco: Never Tobacco Cessation:Ready to Q uit: Not Asked; Counseling Given: Not Answered Social Connection and Isolation Panel [NHANES] A nswer Date Recorded In a typical week, how many times do you talk on the phone with family, friends, or neighbors? Once a week 05/29/19 How often do you get togethe r with friends or relatives? Once a week 05/29/2024 How often do you attend chur ch or sabianism services? 1 to 4 times per year 05/29/2024 Do you belong to any clubs o r organizations such as holiness groups, unions, fraternal or athletic groups, or school groups? No 05/29/2024 How often do you attend meet ings of the clubs or organizations you belong to? Not asked 05/29/2024 Are you , , di vorced, , never , or living with a partner? Never 05/29/2024 Overall Financial Resource Strain (CARDIA) Answe r Date Recorded How hard is it for you to pa y for the very basics like food, housing, medical care, and heating? Very hard 05/29/2024 PHQ-2 Answer Date Recorded Patient Health Questionnaire-2 Score 1 05/29/2024 [facility] - Occupational Stress Questionnaire Answer Date Recorded Do you feel stress - tense, restless, nervous, or anxious, or unable to sleep at night because your mind is troubled all the time - these days? Only a little 05/29/2024 Exercise Vital Sign Answer Date Recorde d On average, how many days pe r week do you engage in moderate to strenuous exercise (like a brisk walk)? 3 days 05/29/2024 On average, how many minutes do you engage in exercise at this level? 20 min 05/29/2024 Hunger Vital Sign Answer Date Recorded Within the past 12 months, y ou worried that your food would run out before you got the money to buy more. Never true 06/02/19 25 Within the past 12 months, t he food you bought just didn't last and you didn't have money to get more. Never true 06/02/2024 PRAPARE - Transportation Answer Date Re corded In the past 12 months, has l ack of transportation kept you from medical appointments or from getting medications? No 05/20 In the past 12 months, has l ack of transportation kept you from meetings, work, or from getting things needed for daily living? No 05/29/2024 Housing Stability Vital Sign Answer Ricardo e Recorded In the last 12 months, was t here a time when you were not able to pay the mortgage or rent on time? Yes 05/29/2024 Number of Times Moved in the Last Year Not on fi le 05/29/2024 Homeless in the Last Year Not on file 2024 Personal Safety Answer Date Recorded Have you ever been in or are you currently in a harmful physical or emotional relationship or is someone making you feel afraid or unsafe? Denies 06/02/2024 Comments Unknown Sex and Gender Information Value Date Recorded Sex Assigned at Not on file Legal Sex Female 5:49 AM PATIENT TRANSPORTATION DRIVER Gender Identity Female 07/31/2021 12:00 PM CDT Sexual Orientation Straight 07/31/2021 12 :00 PM CDT Last Filed Vital Signs Vital Sign Reading Time Taken Comments Blood Pressure 165/95 06/04/2024 12:57 PM PATIENT TRANSPORTATION DRIVER no red flag sx, advised pt to monitor at home and f/u with PCP Pulse 81 06/04/2024 12:57 PM PATIENT TRANSPORTATION DRIVER Temperature 36.8 ??C (98.3 ??F) 06/04/2024 1 2:57 PM PATIENT TRANSPORTATION DRIVER Respiratory Rate 18 06/02/2024 1:18 PM PATIENT TRANSPORTATION DRIVER Oxygen Saturation 92% 06/02/2024 3:4 8 PM PATIENT TRANSPORTATION DRIVER Inhaled Oxygen Concentration - - Weight 105.7 kg (233 lb) 06/04/2024 12: 57 PM PATIENT TRANSPORTATION DRIVER Height 149.9 cm (4' 11 ) 06/04/2024 12: 57 PM PATIENT TRANSPORTATION DRIVER Body Mass Index 47.06 06/04/2024 12:57 PM PATIENT TRANSPORTATION DRIVER Plan of Treatment Not on file Procedures Procedure Name Priority Date/Time Associated Diagnosis Comments ERYTHROCYTE SEDIMENTATION RATE Routine 06/04/2024 2:07 PM PATIENT TRANSPORTATION DRIVER Rheumatoid arthritis involving multiple sites with positive rheumatoid factor (CMS/HCC) (HCC) CRP (ACUTE PHASE) Routine 06/04/2024 2:0 7 PM PATIENT TRANSPORTATION DRIVER Rheumatoid arthritis involving multiple sites with positive rheumatoid factor (CMS/HCC) (HCC) COMPREHENSIVE METABOLIC PANEL Routine 06/04/2024 2:07 PM PATIENT TRANSPORTATION DRIVER Rheumatoid arthritis involving multiple sites with positive rheumatoid factor (CMS/HCC) (HCC) High risk medication use CBC WITH AUTO DIFFERENTIAL Routine 06/04/2024 2:07 PM PATIENT TRANSPORTATION DRIVER Rheumatoid arthritis involving multiple sites with positive rheumatoid factor (CMS/HCC) (HCC) High risk medication use HEPATITIS C ANTIBODY Routine 06/04/2024 2:07 PM PATIENT TRANSPORTATION DRIVER Rheumatoid arthritis involving multiple sites with positive rheumatoid factor (CMS/HCC) (HCC) High risk medication use from Last 3 Months Results * (ABNORMAL) CBC with auto differential (06/04/2024 2:07 PM PATIENT TRANSPORTATION DRIVER) White Blood Count 8.2 3.6 - 11.2 K/uL [facility] RBC 4.99(H) 3.63 - 4.92 M/uL [facility] Hemoglobin 14.2 11.9 - 15.5 g/dL [facility] Hematocrit 43.5 36.1 - 44.3 % [facility] MCV 87.2 80.0 - 97.6 fL [facility] MCH 28.4 26.7 - 33.7 pg [facility] MCHC 32.6(L) 32.7 - 35.5 g/dL [facility] RBC Dist Width 13.9 12.3 - 17.0 % [facility] Platelet Count 262 140 - 440 K/uL [facility] MPV 9.4 6.8 - 10.4 fL [facility] Neutrophils % 57.3 38.7 - 74.5 % [facility] Lymphocyte % 34.2 20.0 - 54.3 % [facility] Monocytes % 6.0 4.3 - 13.5 % [facility] Eosinophils % 2.0 0.0 - 6.0 % [facility] Basophil % 0.5 0.0 - 3.0 % [facility] Absolute Neutrophil 4.7 1.8 - 6.6 K/uL [facility] Absolute Lymphocyte 2.8 0.8 - 3.3 K/uL [facility] Absolute Monocyte 0.5 0.2 - 1.2 K/uL [facility] Absolute Eosinophil 0.2 0.0 - 0.5 K/uL [facility] Absolute Basophil 0.0 0.0 - 0.2 K/uL [facility] Nucleated RBC % 0.0 0.0 - 0.4 /100 WBC [facility] Blood 06/04/2024 2:07 PM PATIENT TRANSPORTATION DRIVER 06/04/2024 3:23 PM PATIENT TRANSPORTATION DRIVER Ryanne Limon NP LAB BLOOD ORDERABLES Final Result Performing Organization Address [facility] de Phone Number [facility] * Hepatitis C antibody Blood (06/04/2024 2:07 PM PATIENT TRANSPORTATION DRIVER) Pathologist [facility] Hep C Ab Nonreactive Nonreactive Comment:Antibodies to HCV no t detected. Does NOT exclude the possibility of recent exposure to HCV. Current interpretive data was last revised on 22 Blood 06/04/2024 2:07 PM PATIENT TRANSPORTATION DRIVER 06/04/2024 4:54 PM PATIENT TRANSPORTATION DRIVER Ryanne Limon NP LAB MICROBIOLOGY - GE NERAL ORDERABLES Final Result Performing Organization Address [facility] Co de Phone Number [facility] Department [place] [address] * Erythrocyte sedimentation rate (06/04/2024 2:07 PM PATIENT TRANSPORTATION DRIVER) [facility] Erythrocyte sedimentation rate 11 1 - 30 mm/hr Blood 06/04/2024 2:07 PM PATIENT TRANSPORTATION DRIVER 06/04/2024 4:54 PM PATIENT TRANSPORTATION DRIVER Ryanne Limon NP LAB BLOOD ORDERABLES Final Result Performing Organization Address [facility] de Phone Number [facility] Department [place] [address] * (ABNORMAL) CRP (acute phase) (06/04/2024 2:07 PM PATIENT TRANSPORTATION DRIVER) [facility] C-Reactive Protein, Acute 19.6(H) <5.0 mg/L [facility] Blood 06/04/2024 2:07 PM PATIENT TRANSPORTATION DRIVER 06/04/2024 3:23 PM PATIENT TRANSPORTATION DRIVER Ryanne Limon GRIP ASSEMBLER LAB BLOOD ORDERABLES Final Result [facility] * Comprehensive metabolic panel (06/04/2024 2:07 PM PATIENT TRANSPORTATION DRIVER) Total Protein 7.7 6.1 - 8.4 g/dL [facility] Albumin 4.3 3.5 - 5.2 g/dL [facility] Calcium 8.9 8.6 - 10.3 mg/dL [facility] BUN 10 7 - 23 mg/dL [facility] Total Bilirubin 0.34 0.20 - 1.40 mg/dL [facility] Alk Phos, Total 116 35 - 129 IU/L [facility] AST (SGOT) 21 11 - 47 IU/L [facility] ALT (SGPT) 18 6 - 53 IU/L [facility] Creatinine 0.67 0.60 - 1.10 mg/dL [facility] Sodium 141 135 - 145 mmol/L [facility] Potassium 3.9 3.3 - 5.1 mmol/L [facility] Chloride 105 95 - 107 mmol/L [facility] CO2 Content 25 21 - 29 mmol/L [facility] Glucose 86 64 - 99 mg/dL [facility] Comment: NONFASTING GLUCOSE RANGE = 64-199 mg/dL FASTING GLUCOSE 64 - 99 = NORMAL FASTING GLUCOSE 100 - 125 = IMPAIRED FASTING GLUCOSE FASTING GLUCOSE >=126 = PROVISIONAL DIAGNOSIS OF DIABETES eGFR >90.0 >60.0 mL/min/1.7 3 m2 [facility] Blood 06/04/2024 2:07 PM PATIENT TRANSPORTATION DRIVER 06/04/2024 3:23 PM PATIENT TRANSPORTATION DRIVER Ryanne Limon GRIP ASSEMBLER LAB BLOOD ORDERABLES Final Result [facility] from Last 3 Months Insurance [facility] Care Teams Technology Education Teacher Relationship Specialty Start Date End Date Violet Donovan PA [address] [place] [address] PCP - General Physician Freight Loading Supervisor 02/04/20
--- OUTSIDE RECORDS SUMMARY | 2024-06-23 15:12 | XMS_ITS | Clinical Summary ---
Author Organization [facility] Address [address] [place] [address] Care Team Providers Care Operating Room Specialist Name Role Phone Pema Bradley MD Primary Care Provider [phone] Source Comments [facility],non-owned Affiliates and Associated Physician Practices is amultiple site organization consisting of ambulatory clinics and hospital sitesin [place], [place], [place] and [place]. This disclosure is being madepursuant to the Care Everywhere program and may not contain all informatio navailable regarding this patient. Last updated 18.[facility] Allergies No known active allergies Medications * Be aware that medications may not be up to date on this document. Alwaysverify current medications with the patient. Medication Sig Dispensed Refills Start Date End Date Status naproxen (NAPROSYN) 500 MG tabletIndications:Recu rrent acute suppurative otitis media of right ear with spontaneous rupture of tympanic membrane Take 1 Tab by mouth 2 times daily as needed for Pain 30 Tab 11/26/2016 Active albuterol HFA (PROVENTIL;VENTOLIN;WY OAIR) 108 (90 BASE) MCG/ACT inhalerIndications:Upp er airway cough syndrome Inhale 2 puffs by mouth every 4 hours as needed 1 Inhaler 06/15/2017 Active Social History Tobacco Use Types Packs/Day Years Used Date Smoking Tobacco: Every Day Smokeless Tobacco: Never Sex and Gender Information Value Date Recorded Sex Assigned at Not on file Gender Identity Not on file Sexual Orientation Not on file Last Filed Vital Signs Vital Sign Reading Time Taken Comments Blood Pressure 122/80 06/15/2017 11:46 AM WELDING SUPERVISOR Pulse 84 06/15/2017 11:46 AM WELDING SUPERVISOR Temperature 37.6 ??C (99.6 ??F) 06/15/2017 11:[address] Respiratory Rate 16 06/15/2017 11:46 AM WELDING SUPERVISOR Oxygen Saturation 96% 06/15/2017 11:46 AM WELDING SUPERVISOR Inhaled Oxygen Concentration - - Weight 90.7 kg (200 lb) 06/15/2017 11:46 AM WELDING SUPERVISOR Height 151.1 cm (4' 11.5 ) 06/15/2017 11:[address] Body Mass Index 39.72 06/15/2017 11:46 AM WELDING SUPERVISOR Plan of Treatment Health Maintenance Due Date Last Done Comments COLOGUARD (AGES 45-75) - COL ON CA SCREENING 1969 COLON MONITORING 1969 COLONOSCOPY - COLON CA SCREENING 1969 CT COLONOGRAPHY - COLON CA SCREENING 1969 Colorectal Cancer Screening 1969 FIT - COLON CA SCREENING 1969 FLEX SIG - COLON CA SCREENING 1969 LIPID TESTING 1969 MAMMOGRAM 1969 PAP SMEAR 1969 HIV SCREENING 01/08/1984 HEPATITIS C SCREENING 01/03/1987 DTAP/TDAP/TD VACCINES (1 - Tdap) 01/08/1988 HEPATITIS B VACCINE (1 of 3 - 19+ 3-dose series) 01/08/1988 PNEUMOCOCCAL VACCINE 50+ (1 of 2 - PCV) 01/08/1988 PNEUMOCOCCAL VACCINE (1 of 2 - PCV) 01/08/1988 SCREENING FOR DIABETES 06/15/2017 ZOSTER VACCINE (1 of 2) 2019 COVID-19 VACCINE (1 - 2023-2 5 season) 2024 INFLUENZA VACCINE (#1) 2024 DEPRESSION SCREENING 05/20/2024 HIB VACCINE Aged Out No longer eligi ble based on patient's age to complete this topic HPV VACCINE Aged Out No longer eligi ble based on patient's age to complete this topic MENINGOCOCCAL (Group B) VACCINE Aged Out No longer eligible based on patient's age to complete this topic MENINGOCOCCAL VACCINE Aged Out No raven janes eligible based on patient's age to complete this topic Care Teams Operating Room Specialist Relationship Specialty Start Date End Date Pema Bradley MD PCP - General Obstetrics and Gynecology 10/09/16
--- OUTSIDE RECORDS SUMMARY | 2024-06-23 15:12 | XMS_ITS | Data Portability ---
[facility] Address [address] [place] [address] Care Team Providers Care Senior Research Associate Name Role Phone SAMIR THOMPSON Primary Care Provider Assessment No assessment recorded. Plan of Treatment Reminders Order Date Submit Date Provider Last Modified By Organization Details Last Modified Time Details Appointments None recorded. Lab urinalysis, dipstick 2022 023 RANCHITA In-Office Order, Internal Use Only DO Not Attach Compendium DO Not Attach Compendium, Do Not Delete/merge, [id number] 3 14:30:35 culture, urine 2022 023 RANCHITA [facility], [address] [place] [address], [address], [place], [address], 3 06:18:37 Referral None recorded. Procedures None recorded. Surgeries None recorded. Imaging None recorded. Medication Orders cefdinir 300 mg capsule 2021 022 [facility] #[id number], [address], [place], [place], [id number], 2 14:48:07 Macrobid 100 mg capsule 2022 023 [facility] #[id number], [address], [place], [place], [id number], 3 13:17:50 loratadine 10 mg tablet 2022 023 [facility] #25458, [address], [place], [place], [id number], 3 16:49:02 Flonase Allergy Relief 50 mcg/actuati on nasal spray,suspe nsion 2022 023 [facility] #04313, [address], [place], [place], [id number], 3 16:48:59 ergocalcife rol (vitamin D2) 1,250 mcg (50,000 unit) capsule 2022 023 [facility] #96990, [address], [place], [place], [id number], 3 13:03:03 lisinopril 10 mg tablet [email or web address] [facility] #18681, [address], [place], [place], [id number], 3 13:01:26 tobramycin 0.3 % eye drops 2023 024 [facility] #17244, [address], [place], [place], [id number], 4 16:51:55 meclizine 25 mg tablet 2023 024 [facility] #95348, [address], [place], [place], [id number], 4 16:52:40 Patient TargetsNo targets recorded. Patient Instructions Encounter Date Encounter Id Patient Instructions Last Modified By Organization Details Last Modified Time 03/07/2023 [id number] A healthy lifestyle: care instructions [email or web address] Not available 03/07/2023 12:57:51 07/12/2023 [id number] benign paroxysma l positional vertigo (bppv): care instructions [email or web address] Not available 07/12/2023 16:52:40 Reason for Referral None Reported. Results Created Date Observation Date Name Description Value Unit Range Abnormal Flag Note LastModifiedBy Organization Detail LastModifiedTime 03/07/2003/09/2023 URINE CULTU RE, ROUTI NE urine culture, routine Final report Not Available [facility] ([facility]) [address] [facility], [place], [address], 03/09/2023 06:18:37 03/07/2003/09/2023 URINE CULTU RE, ROUTI NE result 1 Commen t Cultu re shows less than 10,00 0 colon y formi ng units of bacte maria del carmen per eduardo liter of urine . This colon y count is not gener ally consi dered to be clini katelin signi fican t. Not Available [facility] ([facility]) [address] [facility], [place], [address], 03/09/2023 06:18:37 03/07/2003/07/2023 urina lysis , dipst ick Leukocytes Negati ve Not Available In-Office Order Internal Use Only DO Not Attach Compendium DO Not Attach Compendium, Do Not Delete/merge, [id number] 03/07/2023 12:57:26 03/07/2003/07/2023 urina lysis , dipst ick Nitrite negati ve Not Available In-Office Order Internal Use Only DO Not Attach Compendium DO Not Attach Compendium, Do Not Delete/merge, [id number] 03/07/2023 12:57:26 03/07/2003/07/2023 urina lysis , dipst ick Urobilinogen .2 Not Available In-Of fice Order Internal Use Only DO Not Attach Compendium DO Not Attach Compendium, Do Not Delete/merge, [id number] 03/07/2023 12:57:26 03/07/2003/07/2023 urina lysis , dipst ick Protein Negati ve Not Available In-Office Order Internal Use Only DO Not Attach Compendium DO Not Attach Compendium, Do Not Delete/merge, [id number] 03/07/2023 12:57:26 03/07/20 23 03/07/2023 urina lysis , dipst ick pH 5.5 Not Available In-Office Order Internal Use Only DO Not Attach Compendium DO Not Attach Compendium, Do Not Delete/merge, [id number] 03/07/2023 12:57:26 03/07/20 23 03/07/2023 urina lysis , dipst ick Blood Negati ve Not Available In-Office Order Internal Use Only DO Not Attach Compendium DO Not Attach Compendium, Do Not Delete/merge, [id number] 03/07/2023 12:57:26 03/07/20 23 03/07/2023 urina lysis , dipst ick Specific [place] 1.030 Not Available In-Off ice Order Internal Use Only DO Not Attach Compendium DO Not Attach Compendium, Do Not Delete/merge, [id number] 03/07/2023 12:57:26 03/07/20 23 03/07/2023 urina lysis , dipst ick Ketone Negati ve Not Available In-Office Order Internal Use Only DO Not Attach Compendium DO Not Attach Compendium, Do Not Delete/merge, [id number] 03/07/2023 12:57:26 03/07/20 23 03/07/2023 urina lysis , dipst ick Bilirubin Negati ve Not Available In-Office Order Internal Use Only DO Not Attach Compendium DO Not Attach Compendium, Do Not Delete/merge, [id number] 03/07/2023 12:57:26 03/07/20 23 03/07/2023 urina lysis , dipst ick Glucose Negati ve Not Available In-Office Order Internal Use Only DO Not Attach Compendium DO Not Attach Compendium, Do Not Delete/merge, [id number] 03/07/2023 12:57:26 11/14/19 22 11/02/2021 audio gram No observ ation record ed. [email or web address] Not Available 2021 14:53:13 01/16/20 23 01/14/2023 CT, head, w/o contr ast No observ ation record ed. [email or web address] [facility] [address], [place], [address], 03/07/2023 16:58:01 01/16/20 23 01/14/2023 XR, chest No observ ation record ed. [address] [facility] [address], [place], [address], 03/07/2023 16:58:01 01/17/20 23 01/16/2023 trans -thor acic echoc ardio gram (TTE) (PROC ) No observ ation record ed. [address], [place], [address], 03/07/2023 16:58:00 Result Notes None recorded. Problems Name Problem SNOMED Code Status Onset Date Resolution Date Notes Provider Name and Address Organization Details Recorded Time Pain in left knee Active 2019 Xray showed severe L patellar lateral subluxati on, moderate OA, and moderate joint effusion. Following with Dr. Frazier for ortho care, injection administe rd on 02/10/2020 and again 0. TARA BRYANT Attn: [facility],[address] [place], [address], [place] - [facility] 1 08:57:54 Hyperlip idemia 58374994 Active 2019 TARA BRYANT Attn: Ayla lynnette,[address] [place], [address], [place] - [facility] 0 20:56:22 Proteinu maria del carmen 86335243 Active 2019 TARA BRYANT Attn: [facility],[address] [place], [address], [place] - [facility] 0 20:57:56 Vitamin D deficien cy 48685435 Active 2019 TARA BRYANT Attn: Ayla lynnette,[address] [facility], [place], [address], [place] - [facility] 0 20:58:21 Degenera tion of cervical interver tebral disc 30639191 Active 2019 Xray 0: mild focal kyphosis at c3-C4, mild DDD at C4-C5. TARA BRYANT Attn: [facility],[address] [facility], [place], [address], [place] [facility] 0 09:21:51 Liver enzymes level above referenc e range 477548230 Completed 202107/20/2021 TARA BRYANT Attn: [facility],[address] [facility], [place], [place], [address] [place] [address], [place] [facility] 2 12:11:12 Steatosi s of liver 751073159 Active 2021 TARA BRYANT Attn: [facility],[address] [facility], [place], [place], [address] [place] [address], [place] - [facility] 2 12:11:07 Rheumato id arthriti s 65600449 Active [address] Leonardo at [facility] TARA BRYANT Attn: [facility],[address] [facility], [place], [address], [place] [facility] 0 09:22:33 Nicotine dependen ce 79839731 Active 2016 Cristina Crespo MD Attn: [facility],[address] [facility], [place], [address], [place] - [facility] 7 14:40:31 Overweig ht 869315374 Active 2016 Cristina Crespo MD Attn: [facility],[address] [facility], [place], [address], [place] [facility] 7 14:41:41 Paranoid schizoph serge 19999593 Active 2016 Cristina Crespo MD Attn: [facility],[address] [facility], [place], [address], [place] [facility] 7 09:09:52 Problem Notes None recorded. Procedures Surgical History Date Name Laterality Status Provider Name and Address Organization Details Recorded Time 2 Cerumen removal without microscope completed Radha Loza [facility] 11/13/2021 14:07:53 2 Cerumen removal without microscope cancelled Radha TempletonConnie [facility] 10/10/2021 16:32:01 7 Date of Last Mammogram completed Angelika BRENT Ortiz [facility] 01/29/2020 08:44:49 5 Date of Last Pap Smear completed Angelika BRENT Ortiz [facility] 01/29/2020 08:44:19 Imaging Results Imaging Date Name Status LastModified by Organization Details LastModified Time 11/02/2021 audiogram completed [facility] Information no t available 11/13/2021 14:53:13 01/14/2023 CT, head, w/o contrast completed [address], [address], 03/07/2023 16:58:01 01/14/2023 XR, chest completed [address], [address], 03/07/2023 16:58:01 01/16/2023 trans-thoracic echocardiogram (TTE) (PROC) completed [address], [address], 03/07/2023 16:58:00 Procedure Notes None recorded. Medical Equipment None Reported. Allergies No known drug allergies Medications Name Sig Start Date Stop Date Status Note LastModified by Organization Details LastModified Time cyclobenzap rine 10 mg tablet 01/28 completed Not Available Not Available Not Available amoxicillin 500 mg capsule 01/16 completed Not Available Not Available Not Available cetirizine 10 mg tablet TAKE 1 TABLET BY MOUTH EVERY DAY IN THE MORNING FOR 14 DAYS 08/08 completed Not Available Not Available Not Available azithromyci n 250 mg tablet TAKE 2 TABLETS (500 MG) BY ORAL ROUTE ONCE DAILY FOR 1 DAY THEN 1 TABLET (250 MG) BY ORAL ROUTE ONCE DAILY FOR 4 DAYS 11/13 completed Not Available Not Available Not Available Lidocaine Viscous 2 % mucosal solution 01/28 completed Not Available Not Available Not Available fluconazole 150 mg tablet 01/16 completed Not Available Not Available Not Available prednisone 20 mg tablet 01/28 completed Not Available Not Available Not Available leflunomide 10 mg tablet 03/07 completed Not Available Not Available Not Available meloxicam 7.5 mg tablet 05/10 completed Not Available Not Available Not Available ofloxacin 0.3 % ear drops 01/28 completed Not Available Not Available Not Available amoxicillin 875 mg tablet 01/28 completed Not Available Not Available Not Available methotrexat e sodium 2.5 mg tablet active Not Available Not Available Not Available meclizine 25 mg tablet Take 1 tablet 3 times a day by oral route as needed for 30 days. 2023 active Not Available Not Available Not Avai lable tobramycin 0.3 % eye drops INSTILL 1 DROP INTO AFFECTED EYE(S) BY OPHTHALMI C ROUTE EVERY 4 HOURS active Not Available Not Available No t Available lisinopril 10 mg tablet TAKE 1 TABLET BY MOUTH EVERY DAY DIRECTED active Not Available Not Available No t Available folic acid 1 mg tablet active Not Available Not Available Not Available ergocalcife rol (vitamin D2) 1,250 mcg (50,000 unit) capsule TAKE 1 CAPSULE BY MOUTH EVERY WEEK DIRECTED active Not Available Not Available No t Available methylpredn isolone 4 mg tablets in a dose pack TK UTD 05/03 completed Not Available Not Available Not Available celecoxib 100 mg capsule active Not Available Not Available Not Available cefdinir 300 mg capsule Take 1 capsule every 12 hours by oral route with meals for 7 days. 11/27 completed Not Available Not Available Not Available fluticasone propionate 50 mcg/actuati on nasal spray,suspe nsion Dixon 1 spray every day by intranasa l route as directed for 30 days. active Not Available Not Available No t Available phentermine 37.5 mg capsule TAKE 1 CAPSULE BY MOUTH EVERY DAY IN THE MORNING 11/28 completed Not Available Not Available Not Available loratadine 10 mg tablet Take 1 tablet every day by oral route in the morning for 30 days. 2022 active Not Available Not Available Not Avai lable naproxen 500 mg tablet TK 1 T PO BID UTD 05/10 completed Not Available Not Available Not Available amoxicillin 875 mg-checou m clavulanate 125 mg tablet TAKE 1 TABLET BY MOUTH EVERY 12 HOURS WITH MEALS FOR 7 DAYS 08/08 completed Not Available Not Available Not Available neomycin-po lymyxin-hyd rocort 3.5 mg-10,000 unit/mL-1 % ear drops,susp SHAKE LIQUID AND INSTILL 4 DROPS TO AFFECTED EAR THREE TIMES DAILY FOR 10 DAYS 10/02 completed Not Available Not Available Not Available nitrofurant oin monohydrate /macrocryst als 100 mg capsule TAKE 1 CAPSULE BY MOUTH EVERY 12 HOURS FOR 5 DAYS DIRECTED active Not Available Not Available No t Available calcium 500 mg (as carbonate)- vit D3 10 mcg (400 unit) chewable tablet TAKE 2 TABLETS BY MOUTH DAILY 11/28 completed Not Available Not Available Not Available Rituxan active Not Available Not Avail able Not Available calcium 600 mg (as carbonate)- vitamin D3 10 mcg (400 unit) tablet TAKE 2 TABLETS BY MOUTH DAILY active Not Available Not Available No t Available Vitals Date Recorded Body height Pain severity - 0-10 verbal numeric rating [Score] - Reported Provider Name and Address Organization Details Last Updated DateTime 11/13/2021 151.13 cm 0 Radha Loza [facility] 11/13/2021 14:08:22 Date Recorded Body height Respiratory rate Body mass index (BMI) Body weight Body temperature Heart rate Pain severity - 0-10 verbal numeric rating [Score] - Reported Systolic blood pressure Diastolic blood pressure Provider Name and Address Organization Details Last Updated DateTime 2 151.13 cm 18 /min 46.6 kg/m2 749477. 41 g 97.2 [degF] 81 /min 0 174 mm[Hg] 103 mm[Hg] Radha Loza [facility] 2 14:50:42 Date Recorded Body height Body mass index (BMI) Body weight Heart rate Body temperature Oxygen saturation Oxygen saturation in Arterial blood by Pulse oximetry Systolic blood pressure Diastolic blood pressure Provider Name and Address Organization Details Last Updated DateTime 2 151.13 cm 46.7 kg/m2 262307. 21 g 75 /min 98.3 [degF] 98 % 98 % 140 mm[Hg] 90 mm[Hg] Angelika Ortiz MA [facility] 2 11:40:39 Date Recorded Systolic blood pressure Diastolic blood pressure Provider Name and Address Organization Details Last Updated DateTime 11/28/2021 155 mm[Hg] 90 mm[Hg] TARA BRYANT Attn: Accounting,[address] , [place], [address], [facility] 11/28/2021 12:13:06 Date Recorded Body height Body mass index (BMI) Body weight Body temperature Oxygen saturation Oxygen saturation in Arterial blood by Pulse oximetry Heart rate Systolic blood pressure Diastolic blood pressure Provider Name and Address Organization Details Last Updated DateTime 3 151.13 cm 47.1 kg/m2 978252. 83 g 98.1 [degF] 95 % 95 % 66 /min 138 mm[Hg] 86 mm[Hg] Maegan Cisneros MA [facility] 3 12:34:25 Date Recorded Body height Body mass index (BMI) Body weight Heart rate Oxygen saturation Oxygen saturation in Arterial blood by Pulse oximetry Systolic blood pressure Diastolic blood pressure Provider Name and Address Organization Details Last Updated DateTime 4 151.13 cm 47.1 kg/m2 240055. 39 g 95 /min 98 % 98 % 126 mm[Hg] 82 mm[Hg] Alondra Mclean MA [facility] 4 16:10:22 Social History Question Answer Notes LastModified by Organizat ion Details LastModified Time Tobacco Smoking Status Current Every Day Smoker Nichelle Mcdonald MA [facility], [place] - [facility] 01/16/2017 14:22:08 Do You Have An Advance Directive? No Information not available 07/24/2021 In The 14 Days Before Symptom Onset, Have You Had Close Contact With A Laboratory-confir med COVID-19 While That Case Was Ill? No Information not available 07/24/2021 In The 14 Days Before Symptom Onset, Have You Had Close Contact With A Person Who Is Under Investigation For COVID-19 While That Person Was Ill? No Information not available 07/24/2021 Have You Been To An Area Known To Be High Risk For COVID-19? No Information not available 07/24/2021 Are You Currently Employed? No Information not available 07/24/2021 Do You Or Have You Ever Used E-cigarettes Or Vape? Never Used Electronic Cigarettes Information not available 01/29/2020 Do You Have A High School Diploma Or Higher Education? Yes Information not available 07/24/2021 Do You Sometimes Have To Miss Your Medical Appointments Due To Difficult Getting Transportation? No Information not available 07/24/2021 Do You Feel Unfairly Treated Due To Things Such As Race, Age, Gender, Disability Or Some Other Reason? No Information not available 07/24/2021 Do You Feel Physically And Emotionally Safe While Living At Home? Yes Information not available 07/24/2021 Do You Feel Physically And Emotionally Safe In Your Neighborhood Or Other Public Places? Yes Information not available 07/24/2021 What Was The Date Of Your Most Recent Tobacco Screening? 07/12/2023 Information not available 07/12/2023 How Many Children Do You Have? 0 Information not available 01/29/2020 What Is Your Relationship Status? Single Information not available 07/24/2021 Are You Sexually Active? Yes Information not available 07/24/2021 Do You Have Smoke And Carbon Monoxide Detectors In Your Home? Yes Information not available 07/24/2021 Are You Passively Exposed To Smoke? Yes Information no t available 07/24/2021 Do You Or Have You Ever Used Smokeless Tobacco? Never Used Smokeless Tobacco Information not available 01/29/2020 How Much Tobacco Do You Smoke? 0.5 PPD Information not available 01/16/2017 On What Date Was Tobacco Cessation Counseling Provided? 07/12/2023 Information not available 07/12/2023 How Many Years Have You Smoked Tobacco? 30 Information not available 01/16/2017 Sex: Female Functional Status None recorded. Mental Status None recorded. Family History Relationship Description Onset Age of this Age Resolved Age Notes LastModified by Organization Details LastModified Time Mother Malignant tumor of lung [email or web address] Not available 2019 08:45:21 Maternal Grandmother Dementia mnelsonma Not available 03/2020 08:45:50 Maternal Grandfather Depressive disorder mnelsonma Not available 2019 08:45:58 Paternal Grandmother Malignant tumor of breast mnelsonma Not available 2019 08:46:10 Medical History Condition Response Coronary Artery Disease N Other N High Blood Pressure N Atrial Fibrillation N Kidney or Bladder Problems N Thyroid Problems N GI Problems N Depression N COPD N Blood Clots N Skin Problems N Anemia N Heart Attack (DE) N Anxiety Disorder N Diabetes N Muscle, Joint, or Bone Problems Y Seizures/Epilepsy N Acid Reflux (GERD) N Cancer N Stroke N Asthma N Allergies N High Cholesterol N Hepatitis N Liver Disease N Headaches N Heart Failure N Osteoporosis N Gynecological History Statement/Question Response Menses Monthly N Date of Last Pap Smear 05/20/2014 Age at Menarche 12 Current Control Method Menopause Date of Last Mammogram 05/20/2016 Obstetrics History GPAL:G 0 P 0 0 0 0 Past Encounters Encounter ID Performer Location Encounter Start Date Encounter Closed Date Diagnosis/Indication Diagnosis SNOMED-CT Code Diagnosis ICD10 Code Diagnosis Note [id number] MD Lily Méndez (Adult Med) [address] [place] [address] 01/16/2017 14:05:35 01/16/2017 15:08:12 Adult health examination 160273812 Z00.01 Rheumatoid arthritis 698 30095 M06.9 Nicotine dependence 5629 4008 F17.200 Screening for malignant neoplasm of breast 927600638 Z12.31 Screening for malignant neoplasm of cervix 440141955 Z12.4 Overweight 470442037 E66 .3 Knee pain 37405572 M25.5 61 L>R [id number] TARA BRYANT (Adult Med) [address] [place] [address] 01/29/2020 08:38:24 02/03/2020 08:05:27 Adult health examination 906090499 Z00.01 50 y/o WF with a history of RA presents today to establish care.She has not been following with a PCP for at least a couple years.Has been going to Urgent Care for RA flaresNo labs completed on this patientPHQ 2 was negative in office today (4 out of 27)- will order labs, patient to come to office fasting Rheumatoid arthritis 698 68800 M06.9 She was diagnosed with RA back in 2003.She was last seen by her rheumatolo gist in 2008 at [facility] and may have been on Humira, Prednisone , and MTX in the past. She has been without a rheumatolo gist since then and is requesting a referral today.She has been going to the Urgent Care here in [place] for her RA flares, she is usually treated with naproxen and a shot of toradol for the pain.She used to have bad flares in her wrists, hands, and fingers but now over the past few years it has been her knees (L>R). Complains of severe morning stiffness, swelling, and notes I can just feel the inflammati on .- will get records from if possible- order labs to look for RA- will get xray of left knee- will refill naproxen and give her a short course of steroids to help with current flare- will start Ca and Vit. D supplement s to support her bones and joints- rheumatvalery riley referral placed, advised patient it may take a few months before she can be seen Nicotine dependence 5629 4008 F17.200 Smokes 1/2 PPD- Advised patient to quit smoking, discussed risks of continuing and benefits from quitting, patient to reach out for help when interested in quitting Overweight 442694759 E66 .3 - Advised decreased portion sizes, good food choices, limited eating out or fast food and eliminate soda and juice from diet. Advised physical activity daily and offered encouragem ent to continue with positive changes made so far.- will check TSH and hgbA1c with labs Knee pain 04358807 M25.5 61 Complainin g of severe pain in her knee bilaterall y (L>R).Comp lains of severe morning stiffness, swelling, and notes I can just feel the inflammati on .Hx of RA, although no records of this on file- will order xray of knee- will place orthopedic referral, they may be able to see her prior to rheumatvalery gy and help with knee pain- discussed supportive care at home for her knee pain [id number] TARA BRYANT (Adult Med) [address] [place] [address] 05/03/2020 08:16:27 05/03/2020 15:38:35 [id number] TARA BRYANT (Adult Med) [address] [place] [address] 05/10/2021 11:03:00 05/10/2021 12:16:49 Rheumatoid arthritis 87269679 M06.9 She was diagnosed with RA back in 2003. She is following again again with aj riley at [facility], no longer taking oral steroids but now taking MTX, folic acid, and receiving Rituxan injections . She is also taking celebrex for her pain.She used to have bad flares in her wrists, hands, and fingers but now over the past few years it has been her knees (L>R). Complains of severe morning stiffness, swelling, and notes I can just feel the inflammati on .- c/w rheumatvalery riley and medication s as prescribed Adult [facility] th examination 550708648 Z00.01 Due for annual screening labs- return when fasting Vitamin D deficiency 347 78330 E55.9 Hx of Vit. D def.- will check with other labs Morbid obesity 109902239 E66.01 She was diagnosed with RA back in 2003.She is following with Dr. Lepe for orthopedic care, she has bilateral OA of both knees. They have discussed bilateral knee surgery but patient needs to lose weight before surgery would be an option. In regards to her weight, she has gradually been increasing in weight over the last few years but has put on an extra 20-40 pounds in the last few months. She attributes the gradual increase due to being on chronic steroids for her RA. She contribute s her recent weight gain to cooking for her father and eating more while in the kitchen cooking.Wh en I asked her about exercise, she states yes I exercise, I do my knee exercises and I used to walk a lot at work when I was doing [employer] .For her diet, she does not usually eat breakfast, states she will eat a salad for lunch, eats granola bars for snacks, admits to hot dogs or pizza when she is on the go, and usually pork, steak, potatoes, corn, beans, etc for dinner. She used to drink two 44 oz pepsi drinks per day, she recently switched to diet soda and now not even drinking much of that, also drinks water and unsweetene d tea.Has never seen a nutritioni st. Was on phentermin e 7 years ago and lost > 50 pounds while taking, was about to keep it off for many years but gradually gained the weight back since then. - had a long discussion about her weight and weight loss options today during visit. Patient would like to try weight loss medication again rather than weight loss surgery since medication worked well for her in the past.- expressed my concern with the patient regarding medication , she needs to be willing to change her lifestyle including diet and exercise along with medication to help prevent the weight gain again after coming off medication - discussed contrave with patient but she really does not have cravings or struggle with emotional eating so may not be beneficial - I usually do not prescribed phentermin e but will discuss with Dr. Jani Coats. If this medication is prescribed , I would need patient to see nutritioni st and see me on a monthly basis for monitoring and weight checks. Screening for malignant neoplasm of breast [id number] Z12.39 Due for mammogramD enies breast symptoms. - Gave patient mammogram order during visit today, she is aware she is supposed to call and schedule herself. Bilateral osteoarthritis of knees [id number] M17.0 She was diagnosed with RA back in 2003.She is following with Dr. Lepe for orthopedic care, she has bilateral OA of both knees. They have discussed bilateral knee surgery but patient needs to lose weight before surgery would be an option. Her knee pain is becoming more and more progressiv e, she is no longer working due to the pain and recently filed for temporary disability . States she has a hard time being active due to her severe knee pain.- will discuss weight loss medication with Dr. Jani Coats Screening for malignant neoplasm of cervix [id number] Z12.4 Completed pap smear 2 days ago at [facility] , still waiting on results [id number] TARA BRYANT [facility] (Adult Med) [facility] [place] [address] 07/24/2021 09:42:49 08/01/2021 08:20:51 Acute otitis media [id number] H66.92 She developed nasal congestion , clear rhinorrhea , ear pain (L>R), and ear popping (L>R) x 1 month. Was taking oral anti-hista mine medication s for her allergies but states it did not seem to be helping. Now having green/yell ow rhinorrhea and left ear pain is constant.D enies fever, chills, nausea, vomiting, headaches, rash and diarrhea.- start augmentin x 7 days for L OM- continue with anti-hista mine medication , avoid steroids for now due to hx of RA and being on other immunosupp ressive medication s- f/u in 2-3 weeks to ensure infection is gone Rheumatoid arthritis [id number] M06.9 She was diagnosed with RA back in 2003. She is following again again with aj riley at [facility], no longer taking oral steroids but now taking MTX, folic acid, and receiving Rituxan injections . She is also taking celebrex for her pain.She used to have bad flares in her wrists, hands, and fingers but now over the past few years it has been her knees (L>R). Complains of severe morning stiffness, swelling, and notes I can just feel the inflammati on .- c/w rheumatvalery riley and medication s as prescribed Morbid obesity [id number] E66.01 She was diagnosed with RA back in 2003.She is following with Dr. Lepe for orthopedic care, she has bilateral OA of both knees. They have discussed bilateral knee surgery but patient needs to lose weight before surgery would be an option. In regards to her weight, she has gradually been increasing in weight over the last few years but has put on an extra 20-40 pounds in the last few months. She attributes the gradual increase due to being on chronic steroids for her RA. She contribute s her recent weight gain to cooking for her father and eating more while in the kitchen cooking.Wh en I asked her about exercise, she states yes I exercise, I do my knee exercises and I used to walk a lot at work when I was doing [employer] .For her diet, she does not usually eat breakfast, states she will eat a salad for lunch, eats granola bars for snacks, admits to hot dogs or pizza when she is on the go, and usually pork, steak, potatoes, corn, beans, etc for dinner. She used to drink two 44 oz pepsi drinks per day, she recently switched to diet soda and now not even drinking much of that, also drinks water and unsweetene d tea.Has never seen a nutritioni st. Was on phentermin e 7 years ago and lost > 50 pounds while taking, was about to keep it off for many years but gradually gained the weight back since then. - had a long discussion about her weight and weight loss options today during visit. Patient would like to try weight loss medication again rather than weight loss surgery since medication worked well for her in the past.- expressed my concern with the patient regarding medication , she needs to be willing to change her lifestyle including diet and exercise along with medication to help prevent the weight gain again after coming off medication - discussed contrave with patient but she really does not have cravings or struggle with emotional eating so may not be beneficial - I usually do not prescribed phentermin e but will discuss with Dr. Jani Coats. If this medication is prescribed , I would need patient to see grzegorz oglesby and see me on a monthly basis for monitoring and weight checks. Bilateral osteoarthritis of knees [id number] 93179 M17.0 She was diagnosed with RA back in 2003.She is following with Dr. Lepe for orthopedic care, she has bilateral OA of both knees. They have discussed bilateral knee surgery but patient needs to lose weight before surgery would be an option. Her knee pain is becoming more and more progressiv e, she is no longer working due to the pain and recently filed for temporary disability . States she has a hard time being active due to her severe knee pain.- consider weight loss medication to aid with weight loss to get her bilateral knee surgery [id number] TARA BRYANT (Adult Med) [address] [place] [address] 08/08/2021 08:53:53 08/09/2021 11:19:53 Acute otitis media [id number] H66.92 F/u from last visit, took the abx as prescribed , noticed her rhinorrhea is now back to clear but still having left sided ear pain and intermitte nt popping on that side.Admit s to history of otitis externa as a child.Elias es fever, chills, nausea, vomiting, headaches, rash and diarrhea. - start cefdinir x 7 days- continue with anti-hista mine medication but switch to different one since Zyrtec is not working, avoid steroids for now due to hx of RA and being on other immunosupp ressive medication s- f/u in 2-3 weeks to ensure infection is gone Bilateral osteoarthritis of knees [id number] 15013 M17.0 She was diagnosed with RA back in 2003.She is following with Dr. Lepe for orthopedic care, she has bilateral OA of both knees. They have discussed bilateral knee surgery but patient needs to lose weight before surgery would be an option. Her knee pain is becoming more and more progressiv e, she is no longer working due to the pain and recently filed for temporary disability . States she has a hard time being active due to her severe knee pain.- plan to start phentermin e today for x 3-6 months to aid in weight loss, has upcoming appointmen t with grzegorz oglesby, keep working on healthy lifestyle changes- plan for upcoming knee surgery once weight has decreased per ortho recommenda tions Rheumatoid arthritis [phone] [id number] M06.9 She was diagnosed with RA back in 2003. She is following again again with aj riley at [facility], no longer taking oral steroids but now taking MTX, folic acid, and receiving Rituxan injections . She is also taking celebrex for her pain.She used to have bad flares in her wrists, hands, and fingers but now over the past few years it has been her knees (L>R). Complains of severe morning stiffness, swelling, and notes I can just feel the inflammati on .- c/w rheumatvalery riley and medication s as prescribed Morbid obesity [id number] E66.01 08/08/2021: BMI 47, Wt 236 poundsSdeion was diagnosed with RA back in 2003.She is following with Dr. Lepe for orthopedic care, she has bilateral OA of both knees. They have discussed bilateral knee surgery but patient needs to lose weight before surgery would be an option. In regards to her weight, she has gradually been increasing in weight over the last few years but has put on an extra 20-40 pounds in the last few months. She attributes the gradual increase due to being on chronic steroids for her RA. She contribute s her recent weight gain to cooking for her father and eating more while in the kitchen cooking.Wh en I asked her about exercise, she states yes I exercise, I do my knee exercises and I used to walk a lot at work when I was doing [employer] .For her diet, she does not usually eat breakfast, states she will eat a salad for lunch, eats granola bars for snacks, admits to hot dogs or pizza when she is on the go, and usually pork, steak, potatoes, corn, beans, etc for dinner. She used to drink two 44 oz pepsi drinks per day, she recently switched to diet soda and now not even drinking much of that, also drinks water and unsweetene d tea.Has never seen a nutritioni st. Was on phentermin e 7 years ago and lost > 50 pounds while taking, was about to keep it off for many years but gradually gained the weight back since then. - had a long discussion about her weight and weight loss options today during visit. Patient would like to try weight loss medication again rather than weight loss surgery since medication worked well for her in the past.- expressed my concern with the patient regarding medication , she needs to be willing to change her lifestyle including diet and exercise along with medication to help prevent the weight gain again after coming off medication - discussed contrave with patient but she really does not have cravings or struggle with emotional eating so may not be beneficial - plan to start phentermin e today for x 3-6 months to aid in weight loss, has upcoming appointmen t with [facility], keep working on healthy lifestyle changes.- needs to f/u monthly while being on this medication for weight check, test, BP check, HR check, and check for SE including palpitatio ns, dry mouth, insomnia, and increased anxiety- goal for weight loss: 1 pound per week for the first 4 weeks (>4 pounds at first f/u), then >4-5% (10-13 lbs) weight loss every 3 months- control: post-menop ause- f/u in 1 month Acute otitis externa [id number] 95039 H60.509 Complainin g of continued left ear pain internally and externally Admits to history of otitis externa as a child.On PE: pain on palpation with pressure to tragus, mild pain with pulling on helix, EAC erythemato us- start ear drops x 10 days- use cotton balls while in shower to prevent excess water in the ear canals [id number] TARA BRYANT [facility] (Adult Med) [address] [place] [address] 09/19/2021 10:10:59 09/20/2021 10:54:45 Morbid obesity [id number] E66.01 09/19/2021: BMI 47, Wt 236 lbs3/ 22: BMI 47, Wt 236 poundsShe was diagnosed with RA back in 2003.She is following with Dr. Lepe for orthopedic care, she has bilateral OA of both knees. They have discussed bilateral knee surgery but patient needs to lose weight before surgery would be an option. Was on phentermin e 7 years ago and lost > 50 pounds while taking, was about to keep it off for many years but gradually gained the weight back since then. Has been taking phentermin e daily for one month and has not seen a decrease in her weight. Admits to sometimes feeling a little jittery and talking fast. Reports not being able to fall asleep until midnight or 1 am, but feels like she sleeps enough. She saw a breaker mechanic and discussed eating three meals a day with decreased portion sizes, less carbs, and more vegetables . Has been making these diet changes at home and has a followup visit with the breaker mechanic in December. Is unable to exercise due to bilateral knee pain. - expressed my concern with the patient regarding medication , she needs to be willing to change her lifestyle including diet and exercise along with medication to help prevent the weight gain again after coming off medication - continue phentermin e to aid in weight loss, has f/u appointmen t with [employer] , keep working on healthy lifestyle changes.- encouraged pt to take medication earlier in the morning to prevent insomnia.- needs to f/u monthly while being on this medication for weight check, test, BP check, HR check, and check for SE including palpitatio ns, dry mouth, insomnia, and increased anxiety- goal for weight loss: 1 pound per week for the first 4 weeks (>4 pounds at first f/u), then >4-5% (10-13 lbs) weight loss every 3 months- control: post-menop ause- f/u in 1 month Dysfunctio n of eustachian tube [id number] H69.93 She continues to have congestion , muffled hearing, and itching in left ear. She was diagnosed with sinusitis in May and acute otitis media in July. She has received two courses of abx, but continues to experience symptoms. Worried her immunosupp ressive drugs from her RA are preventing her from clearing the fluid/infe ction.- will refer to ENT [id number] Gerry Eavns MD [facility] [address] [place] [address] 10/02/2021 13:56:54 10/19/2021 10:23:33 Acute sinusitis 52126575 J01.90 Asymmetric al sensorineural hearing loss 662123146 H90.5 [id number] [facility] [address] [place] [address] 11/13/2021 14:06:25 11/15/2021 08:30:38 Impacted cerumen 86014626 H61.20 Acute sinusitis 79240350 J01.90 [id number] [facility] [address] [place] [address] 11/27/2021 14:36:48 11/29/2021 09:17:59 Chronic rhinitis 22971669 J31.0 patient does not like using Flonase try over-the-c ounter antihistam camron follow back if she has further difficulti es [id number] TARA BRYANT (Adult Med) [address] [place] [address] 11/28/2021 11:26:55 11/29/2021 13:51:21 Morbid obesity 467018245 E66.01 08/08/2021: BMI 47, Wt 236 pounds2021: BMI 47, wt 236 pounds11/28: BMI 46.7, Wt 235 poundsShe was diagnosed with RA back in 2003.She is following with Dr. Lepe for orthopedic care, she has bilateral OA of both knees. They have discussed bilateral knee surgery but patient needs to lose weight before surgery would be an option. Was on phentermin e 7 years ago and lost > 50 pounds while taking, was about to keep it off for many years but gradually gained the weight back since then. She took phentermin e daily for two months then ran out 1 month ago because she did not make her f/u appointmen t. No significan t weight loss was noted during these months on the medication . While taking reported feeling a little jittery, hypertalka tive, and initial insomnia. BP slightly elevated today in the office - d/c phentermin e due to no weight change- discussed other options including GLP-1 medication s but she is not interested in another injection at this time- offered weight loss surgery referral but also not sure she is ready for that yet- plan to f/u when ready for further attempt at weight loss Elevated blood-pressure reading without diagnosis of hypertension [id number] R03.0 BP slightly elevated today at 140/90 and 155/90NO prior history of HTNWas taking phentermin e for weight loss, plant to discontinu e now since no improvemen t in weight- will continue to monitor BP, if elevated at f/u, will need to start medication [id number] TARA BRYANT (Adult Med) [address] [place] [address] 03/07/2023 12:04:41 03/13/2023 14:56:49 Diastolic dysfunction 0303424 I51.9 Noted on echo completed in the hospital- discussed these results with patient and likely cause of untreated HTN- rec. starting BP medication but she declined Dysuria 28096022 R30.0 Complainin g of dark, foul smelling urine x 1 month despite drinking >80 oz of water- UA overall normal but due to symptoms, start abx and send culture Essential hypertension 61340740 I10 BP Today: 138/86Pt was at [facility] on 01/14/2023 for severe headache and dizziness. States BP was > 200/100. No BP medication upon discharge. Was checking BP at home, states readings were 130/90s but sometimes jumped up to 160/100s. No prior treatment of HTN. Discussed DASH dietAdvise d 30 minutes of exercise minimum dailyAdvis ed tobacco, alcohol, caffeine all increase BPAdvised goal for BP is <140/90Con tact office if BP is > 140/90 consistent lyDIscusse d consequenc es of HTN including kidney, eye, heart damage, stroke, and even - BP borderline for many years and now diastolic dysfunctio n noted on echo, rec. daily BP medicaiton but she declined and became very irritated at the idea of taking a pill everyday even after I tried to explain the importance - provided her a new BP kit at home. Provided her numbers to watch for. Will write for medication and rec. for her to take Morbid obesity [id number] E66.01 She was diagnosed with RA back in 2003.She is following with Dr. Lepe for orthopedic care, she has bilateral OA of both knees. They have discussed bilateral knee surgery but patient needs to lose weight before surgery would be an option. Was on phentermin e 7 years ago and lost > 50 pounds while taking, was about to keep it off for many years but gradually gained the weight back since then. She took phentermin e daily for two months then ran out 1 month ago because she did not make her f/u appointmen t. No significan t weight loss was noted during these months on the medication . While taking reported feeling a little jittery, hypertalka tive, and initial insomnia. BP slightly elevated today in the office - avoid phentermin e due to no weight change and high BP- discussed other options including GLP-1 medication s but unable to get due to insurance- offered weight loss surgery referral but also not sure she is ready for that yet- plan to f/u when ready for further attempt at weight loss Smoker [id number] F17.200 Still smoking and not interested in quitting at this time- Advised patient to quit smoking, discussed risks of continuing and benefits from quitting, patient to reach out for help when interested in quitting Refusal of treatment by patient [id number] Z53.20 Patient became very defensive during visit after I recommende d starting a daily blood pressure pill. She crossed her arms, rolled her eyes and said I am not going to take medication s for other people. I will take as needed but I will not be on this medication daily . She was no longer interested in chatting so our visit ended after this discussion . Vitamin D deficiency 347 79668 E55.9 Hx of Vit. D def.Taking daily VIt. D and Ca supplement s- c/w daily supplement s- add on Vit. D weekly x 2 months, f/u in 2 months for repeat labs Allergic disposition [id number] 952251 T78.40XA Requesting refills [id number] Fuad Harris MD [facility] (Adult Med) [address] [place] [address] 07/12/2023 15:45:46 07/16/2023 09:51:21 Acute conjunctivitis of left eye [id number] 92937 H10.32 Advised her to go to [facility] any time for any concern, where has ophthalmol ogist personal banking officer 10/12, she agreed. Benign par oxysmal positional vertigo [id number] H81.13 Med refills. Health Concerns Section Related Observation LastModified by Organization Detai ls LastModified Time None Recorded Concern Status LastModified by Organization Details LastModified Time None Recorded Advance Directives Directive N: Payers Encounter Date Sequence Insurance Name Policy Number Policy Mason Covered Member ID Mason Member ID Guarantor Name 11/13/2021 1 [facility] (MEDICAID HMO) [id number] Jyothi Ashlee [id number] Jyothi Ashlee 11/27/2021 1 [facility] (MEDICAID HMO) [id number] Jyothi Ashlee [id number] Jyothi Ashlee 11/28/2021 1 [facility] (MEDICAID HMO) [id number] 0003 Jyothi Ashlee [id number] Jyothi Ashlee 03/07/2023 1 [facility] (MEDICAID HMO) [id number] 0003 Jyothi Ashlee [id number] Jyothi Ashlee 07/12/2023 1 [facility] (MEDICAID HMO) [id number] 0003 Jyothi Ashlee [id number] Jyothi Ashlee Notes Date Note Type Note Provider Name and Address Organization Details Recorded Time 11/13/2021 text/html Pt complaining o f nasal congestion and drainage. She has pressure and popping in her left ear. It has improved with antibiotics and flonase. Audio showed normal hearing with pressure on her Tymp. Continue flonase and follow up in 2-3 weeks Gerry Evans MD [address] [place], [address], [facility] 11/13/2021 14:21:46 11/27/2021 text/html Patient complaining of nasal congestion and drainage. She had more pressure and pain in her face but improved with antibiotics. She had pressure in her left ear but that is also improved. She does not like to use intranasal steroids. Gerry Evans MD [address] [place], [address], [facility] 11/27/2021 14:57:35 11/28/2021 text/html Jyothi is a 51 yo female presenting for f/u regarding desired weight loss. She took phentermine daily for two months then ran out 1 month ago because she did not make her f/u appointment. No significant weight loss was noted during these months on the medication. While taking reported feeling a little jittery, hypertalkative, and initial insomnia. She saw a breaker mechanic and discussed eating three meals a day with decreased portion sizes, less carbs, and more vegetables. She has a follow-up visit with the breaker mechanic in December. Is unable to exercise due to bilateral knee pain from severe OA, plan for knee replacement after weight loss. Denies fever, fatigue, chest pain, dyspnea, abd pain, nausea, vomiting. TARA BRYANT Attn: Accounting[address] [facility], [place], [address], [place] 11/28/2021 22:37:20 03/07/2023 text/html 53 year old fema jose with a history of smoking, RA and elevated blood pressure presents today for acute visit.Pt was at [facility] on 01/14/2023 for severe headache and dizziness. Pt had CT and XR and results are in the chart and overall normal. States BP was > 200/100. Was admitted for a few days. Echo showed diastolic dysfunction. Treated for UTI and blood pressure improved. Discharged home with meclizine. Was checking BP at home, states readings were 130/90s but sometimes jumped up to 160/100s. No prior treatment of HTN. ROS not completed... patient became very defensive during visit after I recommended starting a daily blood pressure pill. She crossed her arms, rolled her eyes and said I am not going to take medications for other people. I will take as needed but I will not be on this medication daily . She was no longer interested in chatting so our visit ended after this discussion. TARA BRYANT Attn: Accounting[address] [facility], [place], [address], [place] [facility] 03/07/2023 16:58:07 07/12/2023 text/html Office visit, NKDA. C/C 1. Left eye congested with some itching, no fever, no blurred vision. starting yester day. not right eye. 2. Wants to refil meclizine. No chest pain, no head ache, no shortness of breath, ROS as noted in HPI. Fuad Harris MD Attn: Accounting[address] [facility], [place], [address], [facility] 07/12/2023 18:04:09 OBGyn Episode No OBEpisode recorded.
--- OUTSIDE RECORDS SUMMARY | 2024-06-23 15:12 | XMS_ITS | Patient Health Summary ---
Author Organization [facility] Address [address] [place] [address] Care Team Providers Care Unarmed Security Guard Name Role Phone Pema Bradley MD Primary Care Provider [phone] Note from [facility],non-owned Affiliates and Associated Physician Practices is amultiple site organization consisting of ambulatory clinics and hospital sitesin [place], [place], [place] and [place]. This disclosure is being madepursuant to the Care Everywhere program and may not contain all information available regarding this patient. Last updated 18.[facility] [employer] Allergies No known active allergies Medications * Be aware that medications may not be up to date on this document. Alwaysverify current medications with the patient. * naproxen (NAPROSYN) 500 MG tablet(Started 11/26/2016) Take 1 Tab by mouth 2 times daily as needed for Pain * albuterol HFA (PROVENTIL;VENTOLIN;PROAIR) 108 (90 BASE) MCG/ACT inhaler (Started 06/15/2017) Inhale 2 puffs by mouth every 4 hours as needed Social History Tobacco Use Types Packs/Day Years Used Date Smoking Tobacco: Every Day Smokeless Tobacco: Never Sex and Gender Information Value Date Recorded Sex Assigned at Not on file Gender Identity Not on file Sexual Orientation Not on file Last Filed Vital Signs Vital Sign Reading Time Taken Comments Blood Pressure 122/80 06/15/2017 11:46 AM SEISMOGRAPH HELPER Pulse 84 06/15/2017 11:46 AM SEISMOGRAPH HELPER Temperature 37.6 ??C (99.6 ??F) 06/15/2017 11:[address] Respiratory Rate 16 06/15/2017 11:46 AM SEISMOGRAPH HELPER Oxygen Saturation 96% 06/15/2017 11:46 AM SEISMOGRAPH HELPER Inhaled Oxygen Concentration - - Weight 90.7 kg (200 lb) 06/15/2017 11:46 AM SEISMOGRAPH HELPER Height 151.1 cm (4' 11.5 ) 06/15/2017 11:[address] Body Mass Index 39.72 06/15/2017 11:46 AM SEISMOGRAPH HELPER Procedures * STREP A SCREEN - POINT OF CARE (AMB) STL(Performed 06/15/2017) Performed for Acute streptococcal pharyngitis Results * (ABNORMAL) STREP A SCREEN - POINT OF CARE (AMB) STL (06/15/2017) Strep A Rapid POCT Positive(A) Negative Strep A Internal Control Present Lot # [id number] Expiration Date 12/28/2018 Throat ENTIRE THROAT (SURFACE REGION OF NECK) / Unknown 06/15/2017 Sherine Soares CAT SCAN TECH-PIG IRON LOADER LAB - POINT OF CARE ORDERABLES Care Teams Unarmed Security Guard Relationship Specialty Start Date End Date Pema Bradley MD PCP - General Obstetrics and Gynecology 10/09/16
--- OUTSIDE RECORDS SUMMARY | 2024-06-23 15:12 | XMS_ITS | Clinical Summary ---
Author Organization [place] [id number] [facility] Address [address] [place] [address] Care Team Providers Care Order Processing Clerk Name Role Phone Violet Donovan Primary Care Provider [phone] Allergies Active Allergy Reactions Criticality Noted Date [...] ng multiple sites with positive rheumatoid factor (CMS/HCC) 05/09/2020 Encounters Date Type Department Care Team Description 06/04/2024 2:07 PM BEAN SNAPPER - 06/04/2024 11:59 PM BEAN SNAPPER Hospital Encounter [facility] [address] [place] [address] Rheumatoid arthritis involving multiple sites with positive rheumatoid factor (CMS/HCC) (HCC); High risk medication use Discharge Disposition: Discharge to home or self care 06/04/2024 1:55 PM BEAN SNAPPER Lab [facility] Metabolism and Lipid [address] [place] [address] [place] [id number] Rheumatoid arthritis involving multiple sites with positive rheumatoid factor (CMS/HCC) (HCC); High risk medication use 06/04/2024 1:00 PM BEAN SNAPPER Office Visit [facility] [address] [place] [address] [place] [phone] Ryanne Limon NP Rheumatoid arthritis involving multiple sites with positive rheumatoid factor (CMS/HCC) (HCC) (Primary Dx); High risk medication use 06/02/2024 1:30 PM BEAN SNAPPER Infusion [facility] [address] [place] [phone] Rheumatoid arthritis involving multiple sites with positive rheumatoid factor (CMS/HCC) (HCC) (Primary Dx) 04/21/2024 1:30 PM BEAN SNAPPER Infusion [facility] [address] [place] [phone] Rheumatoid arthritis involving multiple sites with positive rheumatoid factor (CMS/HCC) (HCC) (Primary Dx) from Last 3 Months Immunizations Name Administration Dates Next Due PPD [...] often do you attend chur ch or jain services? 1 to 4 times per year 05/29/2024 Do you belong to any clubs o r organizations such as denominational groups, unions, fraternal or athletic groups, or [...] Recorded Patient Health Questionnaire-2 Score 1 05/29/2024 [facility] - Occupational Stress [...] on file Legal Sex Female 5:49 AM BEAN SNAPPER Gender Identity Female 07/31/2021 12:00 PM CDT Sexual Orientation Straight 07/31/2021 12 :00 PM CDT Obstetrics History Last Filed Vital Signs Vital Sign Reading Time Taken Comments Blood Pressure 165/95 06/04/2024 12:57 PM BEAN SNAPPER no red flag sx, advised pt to monitor at home and f/u with PCP Pulse 81 06/04/2024 12:57 PM BEAN SNAPPER Temperature 36.8 ??C (98.3 ??F) 06/04/2024 1 2:57 PM BEAN SNAPPER Respiratory Rate 18 06/02/2024 1:18 PM BEAN SNAPPER Oxygen Saturation 92% 06/02/2024 3:4 8 PM BEAN SNAPPER Inhaled Oxygen Concentration - - Weight 105.7 kg (233 lb) 06/04/2024 12: 57 PM BEAN SNAPPER Height 149.9 cm (4' 11 ) 06/04/2024 12: 57 PM BEAN SNAPPER Body Mass Index 47.06 06/04/2024 12:57 PM BEAN SNAPPER Plan of Treatment Health Maintenance Due Date Last Done Comments Breast Cancer Screening-Mammogram 1969 Cervical Cancer Screening 1969 Colon Cancer Screening-Colonoscopy 1969 Pneumococcal vaccine <65 (1 of 2 - PCV) 1975 DTaP/Tdap/Td Vaccine (1 - Tdap) 01/08/1980 Hepatitis B Screening 1987 Regular Well Visit/Exam 18-64 1987 Zoster Vaccine (1 of 2) 01/08/1988 Influenza Vaccine (#1) 2024 Depression Screening 06/04/2025 06/04/2024, 02/20/20 24 Hepatitis C Screening Completed 06/04/2024 Procedures Procedure Name Priority Date/Time Associated Diagnosis Comments ERYTHROCYTE SEDIMENTATION RATE Routine 06/04/2024 2:07 PM BEAN SNAPPER Rheumatoid arthritis involving multiple sites with positive rheumatoid factor (CMS/HCC) (HCC) CRP (ACUTE PHASE) Routine 06/04/2024 2:0 7 PM BEAN SNAPPER Rheumatoid arthritis involving multiple sites with positive rheumatoid factor (CMS/HCC) (HCC) COMPREHENSIVE METABOLIC PANEL Routine 06/04/2024 2:07 PM BEAN SNAPPER Rheumatoid arthritis involving multiple sites with positive rheumatoid factor (CMS/HCC) (HCC) High risk medication use CBC WITH AUTO DIFFERENTIAL Routine 06/04/2024 2:07 PM BEAN SNAPPER Rheumatoid arthritis involving multiple sites with positive rheumatoid factor (CMS/HCC) (HCC) High risk medication use HEPATITIS C ANTIBODY Routine 06/04/2024 2:07 PM BEAN SNAPPER Rheumatoid arthritis involving multiple sites with positive rheumatoid factor (CMS/HCC) (HCC) High risk medication use from Last 3 Months Results * (ABNORMAL) CBC with auto differential (06/04/2024 2:07 PM BEAN SNAPPER) Pathologist [facility] White Blood Count 8.2 3.6 - 11.2 [...] [facility] Blood 06/04/2024 2:07 PM BEAN SNAPPER 06/04/2024 3:23 PM BEAN SNAPPER Ryanne Limon NP LAB BLOOD ORDERABLES Final Result [facility] * Hepatitis C antibody Blood (06/04/2024 2:07 PM BEAN SNAPPER) Pathologist [facility] Hep C Ab Nonreactive Nonreactive Comment:Antibodies to HCV no t detected. Does NOT exclude the possibility of recent exposure to HCV. Current interpretive data was last revised on 22 Blood 06/04/2024 2:07 PM BEAN SNAPPER 06/04/2024 4:54 PM BEAN SNAPPER Ryanne Limon NP LAB MICROBIOLOGY - GE NERAL ORDERABLES Final Result [facility] Department [place] [address] * Erythrocyte sedimentation rate (06/04/2024 2:07 PM BEAN SNAPPER) Pathologist [facility] Erythrocyte sedimentation rate 11 1 - 30 mm/hr Blood 06/04/2024 2:07 PM BEAN SNAPPER 06/04/2024 4:54 PM BEAN SNAPPER Ryanne Vilma Dostal CONFECTIONERY LABORATORY MANAGER LAB BLOOD ORDERABLES Final Result [facility] Department [place] [address] * (ABNORMAL) CRP (acute phase) (06/04/2024 2:07 PM BEAN SNAPPER) C-Reactive Protein, Acute 19.6(H) <5.0 mg/L [facility] Blood 06/04/2024 2:07 PM BEAN SNAPPER 06/04/2024 3:23 PM BEAN SNAPPER Ryanne Limon CONFECTIONERY LABORATORY MANAGER LAB BLOOD ORDERABLES Final Result [facility] * Comprehensive metabolic panel (06/04/2024 2:07 PM BEAN SNAPPER) Total Protein 7.7 6.1 - 8.4 g/dL [...] [facility] Blood 06/04/2024 2:07 PM BEAN SNAPPER 06/04/2024 3:23 PM BEAN SNAPPER Ryanne Limon CONFECTIONERY LABORATORY MANAGER LAB BLOOD ORDERABLES Final Result [facility] from Last 3 Months Insurance [facility] Care Teams Order Processing Clerk Relationship Specialty Start Date End Date Violet Donovan PA [address] [place] [address] PCP - General Physician Second Watch Sergeant 02/04/20
--- OUTSIDE RECORDS SUMMARY | 2024-06-23 15:12 | XMS_ITS | Referral Summary ---
Author Organization [facility] Address [address] [place] [address] Care Team Providers Care Telegraph Office Telephone Clerk Name Role Phone Pema Bradley MD Primary Care Provider [phone] Source Comments [facility],non-owned Affiliates and Associated Physician Practices is amultiple site organization consisting of ambulatory clinics and hospital sitesin [place], [place], [place] and [place]. This disclosure is being madepursuant to the Care Everywhere program and may not contain all information available regarding this patient. Last updated 18.[facility] Allergies No known active allergies Medications * [...] Pain 30 Tab 11/26/2016 Active albuterol HFA (PROVENTIL;VENTOLIN;MN OAIR) 108 (90 BASE) MCG/ACT inhalerIndications:Upp er [...] Comments Blood Pressure 122/80 06/15/2017 11:46 AM KENO CLERK Pulse 84 06/15/2017 11:46 AM KENO CLERK Temperature 37.6 ??C (99.6 ??F) 06/15/2017 11:[address] Respiratory Rate 16 06/15/2017 11:46 AM KENO CLERK Oxygen Saturation 96% 06/15/2017 11:46 AM KENO CLERK Inhaled Oxygen Concentration - - Weight 90.7 kg (200 lb) 06/15/2017 11:46 AM KENO CLERK Height 151.1 cm (4' 11.5 ) 06/15/2017 11:[address] Body Mass Index 39.72 06/15/2017 11:46 AM KENO CLERK Plan of Treatment Not on file Care Teams Telegraph Office Telephone Clerk Relationship Specialty Start Date End Date Pema Bradley MD PCP - General Obstetrics and Gynecology 10/09/16
[2024-06-23 15:50] VITALS: BP 180/100; PULSE 94; RESP 18; TEMP 36.7; O2SAT 100
--- NOTE | 2024-06-23 18:17 | ED.UPPEXIN ---
HPI - Extremity Injury (Upper) General Chief Complaint: Extremity Injury, Upper Stated Complaint: Fall at grocery store 06/17/2024 History of Present Illness HPI narrative: Patient is a 54-year-old female who presents to the ER with complaints of right upper arm pain and left forearm pain. She reports she experienced fall on June 17, 2024. Patient was experiencing knee pain at this time. She was evaluated at an outside ER where they performed x-rays which were negative according to patient. Patient presents to the ER today with complaints of bruising to her left forearm and right upper arm, where she ran into a shelf at the grocery store. She reports she called her microchip specialist, who advised her to come into the ER for evaluation. Patient denies any disfigurement, decreased range of motion, signs/symptoms of infection. Related Data Home Medications ?Medication ?Instructions ?Recorded ?Confirmed ?Last Taken ?Type calcium 600 mg (as 800 tablet PO DAILY 01/15/23 01/15/23 01/08/23 History carbonate)-vitamin D3 10 mcg (400 unit) tablet (Calcium 600 + D(3)) celecoxib 100 mg capsule 100 mg PO DAILY 01/15/23 01/15/23 01/11/23 History folic acid 1 mg tablet 08/21/23 Unknown History methotrexate sodium 2.5 mg tablet mg 08/21/23 Unknown History Allergies Allergy/AdvReac Type Severity Reaction Status Date / Time diphenhydramine (From AdvReac Anxiety Verified 06/23/24 15:59 Benadryl) Review of Systems Review of Systems: All systems reviewed & are unremarkable except as noted in HPI and below PMFSH Past Medical History Medical History Rheumatoid arthritis Postmenopausal Surgical History Surgical History No significant past surgical history Family History Family History Mother Heart disease Lung cancer Sibling Hypertension Social History Social History Smoking packs per day: 0.5 Smoking cigarettes per day: 10.0 Years smoked: 37 Smoking pack-years: 18.50 Smoking status: Current every day smoker Tobacco type: cigarettes Alcohol intake: current Drinks per week: 1 Substance use: never Lack of Transportation: No Lack of Food: Never True Current Housing: I Have Housing Concerned About Future Housing: No Difficulty Paying Gas/Electric Bills: No Difficulty Paying for Meds: No Currently Unemployed: No Education: Decline to Answer Difficulty w/ Childcare or Family Care: No Spiritual care concerns: No Exam Narrative: GENERAL: Well appearing, well-nourished, non-toxic, in no acute distress. HEAD: Normocephalic, atraumatic. NECK: Supple. No adenopathy, no masses. RESPIRATORY: Airway patent, respirations nonlabored. Clear to auscultation bilaterally, no rales, rhonchi, wheezing. CARDIOVASCULAR: Regular rate and rhythm without murmurs, rubs, or gallops. Peripheral pulses 2+ and equal bilaterally. ABDOMINAL: Soft, nontender, nondistended, no hepatosplenomegaly. Normoactive BS. MUSCULOSKELETAL: Moves all extremities. Strength/ROM intact without gross deformities. SKIN: Warm, dry, normal color. No rashes. NEURO: A&O X3. Speech clear. Cranial nerves II-XII grossly intact. Steady gait. No ataxic movements. PSYCHIATRIC: Appropriate mood and affect. Normal interaction. Course Vital Signs Vital signs: Vital Signs Temperature 36.7 C 06/23/24 15:50 Pulse Rate 94 06/23/24 15:50 Respiratory Rate 18 06/23/24 15:50 Blood Pressure 180/100 H 06/23/24 15:50 Pulse Oximetry 100 06/23/24 15:50 Oxygen Delivery Room Air 06/23/24 15:50 Temperature 36.7 C 06/23/24 15:50 Pulse Rate 94 06/23/24 15:50 Respiratory Rate 18 06/23/24 15:50 Blood Pressure 180/100 H 06/23/24 15:50 Pulse Oximetry 100 06/23/24 15:50 Oxygen Delivery Room Air 06/23/24 15:50 MDM - Extremity Injury (Upper) MDM Narrative Medical decision making narrative: Patient is a 54-year-old female who presents to the ER with complaints of right upper arm pain and left forearm pain. She reports she experienced fall on June 17, 2024. Patient was experiencing knee pain at this time. She was evaluated at an outside ER where they performed x-rays which were negative according to patient. Patient presents to the ER today with complaints of bruising to her left forearm and right upper arm, where she ran into a shelf at the grocery store. She reports she called her microchip specialist, who advised her to come into the ER for evaluation. Patient denies any disfigurement, decreased range of motion, signs/symptoms of infection. Labs Ordered: None necessary Imaging Ordered: Right humerus x-ray, left forearm x-ray Medications Ordered: None necessary Results: Pt's R humerus xray indicates mild right acromioclavicular and elbow osteoarthritis. No acute osseous abnormality. Pt's L forearm x-ray indicates No acute osseous abnormality. 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 Diagnosis: Left forearm contusion, right humeral contusion Patient Education/Shared MDM: Results shared with patient. She was strongly advised to follow-up with her PCP and microchip specialist. Pt will be discharged home with no new prescriptions. Strict return precautions provided. Patient verbalized understanding is in agreement with plan. Vital signs stable at time of discharge. All questions answered. Differential Diagnosis Differential diagnosis: Likely sprain and strain of wrist, fracture of humerus and other (Ecchymosis to upper extremities) Imaging Data Attestation: I personally reviewed and interpreted this imaging study as follows: Radiologist's impression: Impressions Humerus X-Ray 06/23/24 16:27 IMPRESSION: 1. Mild right acromioclavicular and elbow osteoarthritis. No acute osseous abnormality. Forearm X-Ray 06/23/24 16:40 IMPRESSION: 1. No acute osseous abnormality. 2. 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 Discharge Plan Discharge Clinical Impression: Bruise of both arms, Superficial bruising of upper limb, Multiple superficial injuries of left forearm Patient Disposition: Home, Self-Care Condition: Stable Instructions: Antibiotic Form, Hematoma (ED) Additional Instructions: Please return to the ER with an worsening symptoms. Follow-up with primary care provider or parts cataloguer in the next 2-3 days. Take all regular medications as prescribed. Patient Language: Arabic Prescriptions: No Action methotrexate sodium 2.5 mg tablet folic acid 1 mg tablet clindamycin HCl 300 mg capsule 300 mg PO Q8H 14 Days Qty: 42 0RF lidocaine HCl [Lidocaine Viscous] 2 % solution 1 applic mucous membrane TID PRN (Reason: pain) 7 Days Qty: 100 0RF celecoxib 100 mg capsule 100 mg PO DAILY calcium carbonate-vitamin D3 [Calcium 600 + D(3)] 600 mg-10 mcg (400 unit) tablet 800 tablet PO DAILY Follow-up/Referrals: Venus,TARA Harris [Primary Care Provider] - Time of Disposition: 18:32
--- OUTSIDE RECORDS SUMMARY | 2024-06-23 18:46 | XMS_ITS | Referral Summary ---
Author Organization [place] [id number] [facility] Address [address] [place] [address] Care Team Providers Care Quencher Operator Name Role Phone Violet Donovan Primary Care Provider [phone] Encounters Date Type Department Care Team Description 06/04/2024 2:07 PM TRUCK DOCK MATERIAL MOVER - 06/04/2024 11:59 PM TRUCK DOCK MATERIAL MOVER Hospital Encounter [address] [id number] Rheumatoid arthritis involving multiple sites with positive rheumatoid factor (CMS/HCC) (HCC); High risk medication use Discharge Disposition: Discharge to home or self care 06/04/2024 1:55 PM TRUCK DOCK MATERIAL MOVER Lab [facility] Endocrinology Metabolism and Lipid [address] [place] [address] [place] [address] Rheumatoid arthritis involving multiple sites with positive rheumatoid factor (CMS/HCC) (HCC); High risk medication use 06/04/2024 1:00 PM TRUCK DOCK MATERIAL MOVER Office Visit [facility] Rheumatology [address] [place] [address] [place] [address] Ryanne Limon NP Rheumatoid arthritis involving multiple sites with positive rheumatoid factor (CMS/HCC) (HCC) (Primary Dx); High risk medication use 06/02/2024 1:30 PM TRUCK DOCK MATERIAL MOVER Infusion [facility] [address] [place] [phone] Rheumatoid arthritis involving multiple sites with positive rheumatoid factor (CMS/HCC) (HCC) (Primary Dx) 04/21/2024 1:30 PM TRUCK DOCK MATERIAL MOVER Infusion [facility] [address] [place] [phone] Rheumatoid arthritis involving multiple sites with positive rheumatoid factor ([facility]) ([facility]) (Primary Dx) from Last 3 Months Allergies [...] ng multiple sites with positive rheumatoid factor ([facility]) 05/09/2020 Immunizations Name Administration Dates Next Due [...] often do you attend chur ch or congregation services? 1 to 4 times per year 05/29/2024 Do you belong to any clubs o r organizations such as adventism groups, unions, fraternal or athletic groups, or [...] Recorded Patient Health Questionnaire-2 Score 1 05/29/2024 [facility] ional [facility] - Occupational [...] on file Legal Sex Female 5:49 AM TRUCK DOCK MATERIAL MOVER Gender Identity Female 07/31/2021 12:00 PM CDT Sexual Orientation Straight 07/31/2021 12 :00 PM CDT Last Filed Vital Signs Vital Sign Reading Time Taken Comments Blood Pressure 165/95 06/04/2024 12:57 PM TRUCK DOCK MATERIAL MOVER no red flag sx, advised pt to monitor at home and f/u with PCP Pulse 81 06/04/2024 12:57 PM TRUCK DOCK MATERIAL MOVER Temperature 36.8 ??C (98.3 ??F) 06/04/2024 1 2:57 PM TRUCK DOCK MATERIAL MOVER Respiratory Rate 18 06/02/2024 1:18 PM TRUCK DOCK MATERIAL MOVER Oxygen Saturation 92% 06/02/2024 3:4 8 PM TRUCK DOCK MATERIAL MOVER Inhaled Oxygen Concentration - - Weight 105.7 kg (233 lb) 06/04/2024 12: 57 PM TRUCK DOCK MATERIAL MOVER Height 149.9 cm (4' 11 ) 06/04/2024 12: 57 PM TRUCK DOCK MATERIAL MOVER Body Mass Index 47.06 06/04/2024 12:57 PM TRUCK DOCK MATERIAL MOVER Plan of Treatment Not on file Procedures Procedure Name Priority Date/Time Associated Diagnosis Comments ERYTHROCYTE SEDIMENTATION RATE Routine 06/04/2024 2:07 PM TRUCK DOCK MATERIAL MOVER Rheumatoid arthritis involving multiple sites with positive rheumatoid factor (CMS/HCC) (HCC) CRP (ACUTE PHASE) Routine 06/04/2024 2:0 7 PM TRUCK DOCK MATERIAL MOVER Rheumatoid arthritis involving multiple sites with positive rheumatoid factor (CMS/HCC) (HCC) COMPREHENSIVE METABOLIC PANEL Routine 06/04/2024 2:07 PM TRUCK DOCK MATERIAL MOVER Rheumatoid arthritis involving multiple sites with positive rheumatoid factor (CMS/HCC) (HCC) High risk medication use CBC WITH AUTO DIFFERENTIAL Routine 06/04/2024 2:07 PM TRUCK DOCK MATERIAL MOVER Rheumatoid arthritis involving multiple sites with positive rheumatoid factor (CMS/HCC) (HCC) High risk medication use HEPATITIS C ANTIBODY Routine 06/04/2024 2:07 PM TRUCK DOCK MATERIAL MOVER Rheumatoid arthritis involving multiple sites with positive rheumatoid factor (CMS/HCC) (HCC) High risk medication use from Last 3 Months Results * (ABNORMAL) CBC with auto differential (06/04/2024 2:07 PM TRUCK DOCK MATERIAL MOVER) White Blood Count 8.2 3.6 - 11.2 [...] [facility] Blood 06/04/2024 2:07 PM TRUCK DOCK MATERIAL MOVER 06/04/2024 3:23 PM TRUCK DOCK MATERIAL MOVER Ryanne Limon NP LAB BLOOD ORDERABLES Final Result Performing Organization Address [facility] de Phone Number [facility] * Hepatitis C antibody Blood (06/04/2024 2:07 PM TRUCK DOCK MATERIAL MOVER) Pathologist [facility] Hep C Ab Nonreactive Nonreactive Comment:Antibodies to HCV no t detected. Does NOT exclude the possibility of recent exposure to HCV. Current interpretive data was last revised on 22 Blood 06/04/2024 2:07 PM TRUCK DOCK MATERIAL MOVER 06/04/2024 4:54 PM TRUCK DOCK MATERIAL MOVER Ryanne Limon NP LAB MICROBIOLOGY - GE NERAL ORDERABLES Final Result Performing Organization Address [facility] Co de Phone Number [facility] Department [place] [address] * Erythrocyte sedimentation rate (06/04/2024 2:07 PM TRUCK DOCK MATERIAL MOVER) [facility] Erythrocyte sedimentation rate 11 1 - 30 mm/hr Blood 06/04/2024 2:07 PM TRUCK DOCK MATERIAL MOVER 06/04/2024 4:54 PM TRUCK DOCK MATERIAL MOVER Ryanne Limon NP LAB BLOOD ORDERABLES Final Result Performing Organization Address [facility] de Phone Number [facility] Department [place] [address] * (ABNORMAL) CRP (acute phase) (06/04/2024 2:07 PM TRUCK DOCK MATERIAL MOVER) [facility] C-Reactive Protein, Acute 19.6(H) <5.0 mg/L [facility] Blood 06/04/2024 2:07 PM TRUCK DOCK MATERIAL MOVER 06/04/2024 3:23 PM TRUCK DOCK MATERIAL MOVER Ryanne Limon CASTINGS DRAFTER LAB BLOOD ORDERABLES Final Result [facility] * Comprehensive metabolic panel (06/04/2024 2:07 PM TRUCK DOCK MATERIAL MOVER) Total Protein 7.7 6.1 - 8.4 g/dL [...] [facility] Blood 06/04/2024 2:07 PM TRUCK DOCK MATERIAL MOVER 06/04/2024 3:23 PM TRUCK DOCK MATERIAL MOVER Ryanne Limon CASTINGS DRAFTER LAB BLOOD ORDERABLES Final Result [facility] from Last 3 Months Insurance [facility] Care Teams Quencher Operator Relationship Specialty Start Date End Date Violet Donovan PA [address] [place] [address] PCP - General Physician Building Construction Estimator 02/04/20
--- OUTSIDE RECORDS SUMMARY | 2024-06-23 18:46 | XMS_ITS | Clinical Summary ---
Author Organization [facility] [employer] Address [address] [place] [address] Care Team Providers Care Tour Bus Driver/Guide Name Role Phone Pema Bradley MD Primary Care Provider [phone] Source Comments [facility] [employer],non-owned Affiliates and Associated Physician Practices is amultiple site organization consisting of ambulatory clinics and hospital sitesin [place], [place], [place] and [place]. This disclosure is being madepursuant to the Care Everywhere program and may not contain all informatio navailable regarding this patient. Last updated 18.[facility] [employer] Allergies No known active allergies Medications * [...] Pain 30 Tab 11/26/2016 Active albuterol HFA (PROVENTIL;VENTOLIN;MS OAIR) 108 (90 BASE) MCG/ACT inhalerIndications:Upp er [...] Comments Blood Pressure 122/80 06/15/2017 11:46 AM MUD TANK OPERATOR Pulse 84 06/15/2017 11:46 AM MUD TANK OPERATOR Temperature 37.6 ??C (99.6 ??F) 06/15/2017 11:[address] Respiratory Rate 16 06/15/2017 11:46 AM MUD TANK OPERATOR Oxygen Saturation 96% 06/15/2017 11:46 AM MUD TANK OPERATOR Inhaled Oxygen Concentration - - Weight 90.7 kg (200 lb) 06/15/2017 11:46 AM MUD TANK OPERATOR Height 151.1 cm (4' 11.5 ) 06/15/2017 11:[address] Body Mass Index 39.72 06/15/2017 11:46 AM MUD TANK OPERATOR Plan of Treatment Health Maintenance Due Date [...] age to complete this topic Care Teams Tour Bus Driver/Guide Relationship Specialty Start Date End Date Pema Bradley MD PCP - General Obstetrics and Gynecology 10/09/16
--- OUTSIDE RECORDS SUMMARY | 2024-06-23 18:46 | XMS_ITS | Clinical Summary ---
Author Organization [place] [id number] [facility] Address [address] [place] [address] Care Team Providers Care Deputy Jailer Name Role Phone Violet Donovan Primary Care Provider [phone] Allergies Active Allergy Reactions Criticality Noted Date [...] Department Care Team Description 06/04/2024 2:07 PM ROBOTICS MECHANIC - 06/04/2024 11:59 PM ROBOTICS MECHANIC Hospital Encounter [facility] [address] [place] [address] Rheumatoid arthritis involving multiple sites with positive rheumatoid factor (CMS/HCC) (HCC); High risk medication use Discharge Disposition: Discharge to home or self care 06/04/2024 1:55 PM ROBOTICS MECHANIC Lab [facility] Endocrinology Metabolism and Lipid [address] [place] [address] [place] [phone] Rheumatoid arthritis involving multiple sites with positive rheumatoid factor (CMS/HCC) (HCC); High risk medication use 06/04/2024 1:00 PM ROBOTICS MECHANIC Office Visit [facility] Rheumatology [address] [place] [address] [place] [phone] Ryanne Limon NP Rheumatoid arthritis involving multiple sites with positive rheumatoid factor (CMS/HCC) (HCC) (Primary Dx); High risk medication use 06/02/2024 1:30 PM ROBOTICS MECHANIC Infusion [facility] [address] [place] [phone] Rheumatoid arthritis involving multiple sites with positive rheumatoid factor (CMS/HCC) (HCC) (Primary Dx) 04/21/2024 1:30 PM ROBOTICS MECHANIC Infusion [facility] [address] [place] [phone] Rheumatoid arthritis involving multiple sites with positive [...] often do you attend chur ch or alevism services? 1 to 4 times per year 05/29/2024 Do you belong to any clubs o r organizations such as latter day groups, unions, fraternal or athletic groups, or [...] Recorded Patient Health Questionnaire-2 Score 1 05/29/2024 [facility] of Occupat ional Health - Occupational Stress [...] on file Legal Sex Female 5:49 AM ROBOTICS MECHANIC Gender Identity Female 07/31/2021 12:00 PM CDT Sexual Orientation Straight 07/31/2021 12 :00 PM CDT Obstetrics History Last Filed Vital Signs Vital Sign Reading Time Taken Comments Blood Pressure 165/95 06/04/2024 12:57 PM ROBOTICS MECHANIC no red flag sx, advised pt to monitor at home and f/u with PCP Pulse 81 06/04/2024 12:57 PM ROBOTICS MECHANIC Temperature 36.8 ??C (98.3 ??F) 06/04/2024 1 2:57 PM ROBOTICS MECHANIC Respiratory Rate 18 06/02/2024 1:18 PM ROBOTICS MECHANIC Oxygen Saturation 92% 06/02/2024 3:4 8 PM ROBOTICS MECHANIC Inhaled Oxygen Concentration - - Weight 105.7 kg (233 lb) 06/04/2024 12: 57 PM ROBOTICS MECHANIC Height 149.9 cm (4' 11 ) 06/04/2024 12: 57 PM ROBOTICS MECHANIC Body Mass Index 47.06 06/04/2024 12:57 PM ROBOTICS MECHANIC Plan of Treatment Health Maintenance Due Date [...] ERYTHROCYTE SEDIMENTATION RATE Routine 06/04/2024 2:07 PM ROBOTICS MECHANIC Rheumatoid arthritis involving multiple sites with positive rheumatoid factor (CMS/HCC) (HCC) CRP (ACUTE PHASE) Routine 06/04/2024 2:0 7 PM ROBOTICS MECHANIC Rheumatoid arthritis involving multiple sites with positive rheumatoid factor (CMS/HCC) (HCC) COMPREHENSIVE METABOLIC PANEL Routine 06/04/2024 2:07 PM ROBOTICS MECHANIC Rheumatoid arthritis involving multiple sites with positive rheumatoid factor (CMS/HCC) (HCC) High risk medication use CBC WITH AUTO DIFFERENTIAL Routine 06/04/2024 2:07 PM ROBOTICS MECHANIC Rheumatoid arthritis involving multiple sites with positive rheumatoid factor (CMS/HCC) (HCC) High risk medication use HEPATITIS C ANTIBODY Routine 06/04/2024 2:07 PM ROBOTICS MECHANIC Rheumatoid arthritis involving multiple sites with positive rheumatoid factor (CMS/HCC) (HCC) High risk medication use from Last 3 Months Results * (ABNORMAL) CBC with auto differential (06/04/2024 2:07 PM ROBOTICS MECHANIC) Pathologist [facility] White Blood Count 8.2 3.6 - 11.2 [...] [facility] Blood 06/04/2024 2:07 PM ROBOTICS MECHANIC 06/04/2024 3:23 PM ROBOTICS MECHANIC Ryanne Limon NP LAB BLOOD ORDERABLES Final Result [facility] * Hepatitis C antibody Blood (06/04/2024 2:07 PM ROBOTICS MECHANIC) Pathologist [facility] Hep C Ab Nonreactive Nonreactive Comment:Antibodies to HCV no t detected. Does NOT exclude the possibility of recent exposure to HCV. Current interpretive data was last revised on 22 Blood 06/04/2024 2:07 PM ROBOTICS MECHANIC 06/04/2024 4:54 PM ROBOTICS MECHANIC Ryanne Limon NP LAB MICROBIOLOGY - GE NERAL ORDERABLES Final Result [facility] [place] [address] * Erythrocyte sedimentation rate (06/04/2024 2:07 PM ROBOTICS MECHANIC) Pathologist [facility] Erythrocyte sedimentation rate 11 1 - 30 mm/hr Blood 06/04/2024 2:07 PM ROBOTICS MECHANIC 06/04/2024 4:54 PM ROBOTICS MECHANIC Ryanne Vilma Dostal POLICY WRITER LAB BLOOD ORDERABLES Final Result [facility] [place] [address] * (ABNORMAL) CRP (acute phase) (06/04/2024 2:07 PM ROBOTICS MECHANIC) C-Reactive Protein, Acute 19.6(H) <5.0 mg/L [facility] Blood 06/04/2024 2:07 PM ROBOTICS MECHANIC 06/04/2024 3:23 PM ROBOTICS MECHANIC Ryanne Limon POLICY WRITER LAB BLOOD ORDERABLES Final Result [facility] * Comprehensive metabolic panel (06/04/2024 2:07 PM ROBOTICS MECHANIC) Total Protein 7.7 6.1 - 8.4 g/dL [...] [facility] Blood 06/04/2024 2:07 PM ROBOTICS MECHANIC 06/04/2024 3:23 PM ROBOTICS MECHANIC Ryanne Limon POLICY WRITER LAB BLOOD ORDERABLES Final Result [facility] from Last 3 Months Insurance [facility] Care Teams Deputy Jailer Relationship Specialty Start Date End Date Violet Donovan PA [address] [place] [address] PCP - General Physician Environmental Emergencies Assistant 02/04/20
--- OUTSIDE RECORDS SUMMARY | 2024-06-23 18:46 | XMS_ITS | Patient Health Summary ---
Author Organization [facility] Address [address] [place] [address] Care Team Providers Care Music Adapter Name Role Phone Pema Bradley MD Primary Care Provider [phone] Note from [facility],non-owned Affiliates and Associated Physician Practices is amultiple site organization consisting of ambulatory clinics and hospital sitesin [place], [place], [place] and [place]. This disclosure is being madepursuant to the Care Everywhere program and may not contain all information available regarding this patient. Last updated 18.[facility] Allergies No known active allergies Medications * [...] Comments Blood Pressure 122/80 06/15/2017 11:46 AM BODY ART TECHNICIAN Pulse 84 06/15/2017 11:46 AM BODY ART TECHNICIAN Temperature 37.6 ??C (99.6 ??F) 06/15/2017 11:[address] Respiratory Rate 16 06/15/2017 11:46 AM BODY ART TECHNICIAN Oxygen Saturation 96% 06/15/2017 11:46 AM BODY ART TECHNICIAN Inhaled Oxygen Concentration - - Weight 90.7 kg (200 lb) 06/15/2017 11:46 AM BODY ART TECHNICIAN Height 151.1 cm (4' 11.5 ) 06/15/2017 11:[address] Body Mass Index 39.72 06/15/2017 11:46 AM BODY ART TECHNICIAN Procedures * STREP A SCREEN - POINT OF CARE (AMB) STL(Performed 06/15/2017) Performed for Acute streptococcal pharyngitis Results * (ABNORMAL) STREP A SCREEN - POINT OF CARE (AMB) STL (06/15/2017) Strep A Rapid POCT Positive(A) Negative Strep A Internal Control Present Lot # [id number] Expiration Date 12/28/2018 Throat ENTIRE THROAT (SURFACE REGION OF NECK) / Unknown 06/15/2017 Sherine Soares INSECTICIDE EXPERT-REFERRAL MANAGEMENT LIAISON LAB - POINT OF CARE ORDERABLES Care Teams Music Adapter Relationship Specialty Start Date End Date Pema Bradley MD PCP - General Obstetrics and Gynecology 10/09/16
--- OUTSIDE RECORDS SUMMARY | 2024-06-23 18:46 | XMS_ITS | Referral Summary ---
Author Organization [facility] [employer] Address [address] [place] [address] Care Team Providers Care Environmental Communications Specialist Name Role Phone Pema Bradley MD Primary Care Provider [phone] Source Comments [facility] [employer],non-owned Affiliates and Associated Physician Practices is amultiple site organization consisting of ambulatory clinics and hospital sitesin [place], [place], [place] and [place]. This disclosure is being madepursuant to the Care Everywhere program and may not contain all information available regarding this patient. Last updated 18.[facility] Allergies No known active allergies Medications * [...] Pain 30 Tab 11/26/2016 Active albuterol HFA (PROVENTIL;VENTOLIN;RI OAIR) 108 (90 BASE) MCG/ACT inhalerIndications:Upp er [...] Comments Blood Pressure 122/80 06/15/2017 11:46 AM TABLE TENDER Pulse 84 06/15/2017 11:46 AM TABLE TENDER Temperature 37.6 ??C (99.6 ??F) 06/15/2017 11:[address] Respiratory Rate 16 06/15/2017 11:46 AM TABLE TENDER Oxygen Saturation 96% 06/15/2017 11:46 AM TABLE TENDER Inhaled Oxygen Concentration - - Weight 90.7 kg (200 lb) 06/15/2017 11:46 AM TABLE TENDER Height 151.1 cm (4' 11.5 ) 06/15/2017 11:[address] Body Mass Index 39.72 06/15/2017 11:46 AM TABLE TENDER Plan of Treatment Not on file Care Teams Environmental Communications Specialist Relationship Specialty Start Date End Date Pema Bradley MD PCP - General Obstetrics and Gynecology 10/09/16
[2024-06-23 18:48] VITALS: BP 190/109; PULSE 79; RESP 17; TEMP 36.4; O2SAT 100
== END 2024-06-23 19:03 | disposition home or self-care (01) ==
LOC: ANHED 18:44
PROVIDERS: Emergency Provider Registered Nurse; PCP Physician Assistant
DX: S40.022A Contusion of left upper arm, initial encounter (principal); S40.021A Contusion of right upper arm, initial encounter; F17.210 Nicotine dependence, cigarettes, uncomplicated; M06.9 Rheumatoid arthritis, unspecified; W22.09XA Striking against other stationary object, initial encounter
CPT/HCPCS: 73060; 73090; 99284